=== PATIENT | female | born 1930 | race Caucasian/White ===

== ENCOUNTER → 2017-01-23 | Outpatient (CLI) | payer MEDICARE ==
[2015-04-07 12:50] VITALS: BP 154/71
[~2017-01-23] MED LIST: ASPI-630 PO; DIPH25CA58 PO; GABA-585 PO; GLIM4TAB PO; HYDR25TA9 PO; METF10002 PO; METO50TA4 PO; MONT10TA6 PO; SIMV20TA3 PO; TRAM50TA PO; VERA240C2 PO
--- NOTE | 2017-01-23 18:06 | RAD ---
Right toes, 3 views, 01/23/2017: History: Redness and swelling Views of the first through fourth toes were obtained. There is bony demineralization. There is a surgical wire related to the proximal phalanx of the great toe. There are moderate scattered degenerative changes, particularly at the first MTP level. There as probably been previous bunion type surgery at that level. There are fractures of the second toe. There is a fracture of the distal aspect of the proximal phalanx with mild displacement at that fracture site. The age of this fracture is unclear. The underlying PIP joint may have been chronically fused. There is a small nondisplaced fracture of the medial aspect of the distal end of the middle phalanx of the second toe. No definite bone destruction is seen. IMPRESSION: 1. Demineralization. 2. Moderate degenerative change. 3. Right second toe fractures as described above.
== END | disposition home or self-care (01) ==
LOC: LAB 15:00
PROVIDERS: ATTEND Family Medicine
DX: S92.511A Displaced fracture of proximal phalanx of right lesser toe(s), initial encounter for closed fracture (principal); M19.071 Primary osteoarthritis, right ankle and foot; X58.XXXA Exposure to other specified factors, initial encounter; Y93.89 Activity, other specified; Y92.89 Other specified places as the place of occurrence of the external cause; Y99.8 Other external cause status
CPT/HCPCS: 73660

== ENCOUNTER 2017-06-17 18:36 | Inpatient (IN) | payer MEDICARE ==
[~2017-06-17] VITALS: Ht 152.4 cm; Wt 77.2 kg
--- NOTE | 2017-06-17 19:16 | ED.ADGEN ---
Adult General Chief Complaint Chief Complaint " .. I ve had diarrhea for a week... I brought in some of my stool..." Dr. Wilks said I need to collect my stool.." HPI HPI Patient is a 87 year old female who presents with above hx and complaints of diarrhea, generalized weakness and fatigue. Pt. denies any bad food intake. No travel or specific ill contacts. Pt. reports multiple episodes of diarrhea. No hx of immunosuppression. Review of Systems Review of Systems Constitutional:Hx. of fever or chills [] Eyes: Denies change in visual acuity, redness, or eye pain [] HENT: Denies nasal congestion or sore throat [] Respiratory: Denies cough or shortness of breath [] Cardiovascular: No additional information not addressed in HPI [] GI: generalized abdominal pain, nausea, and diarrhea [] : Denies dysuria or hematuria [] Musculoskeletal: Denies back pain or joint pain [] Integument: Denies rash or skin lesions [] Neurologic: Denies headache, focal weakness or sensory changes [] Endocrine: Denies polyuria or polydipsia [] All other systems were reviewed and found to be within normal limits, except as documented in this note. Family History Family History Non-contributory Current Medications Current Medications Current Medications Medications (Trade) Dose Ordered Sig/Gilma Start Time Stop Time Status Last Admin Dose Admin Famotidine (Pepcid Vial) 20 mg 1X ONCE 06/17/17 19:30 06/17/17 19:43 DC Ondansetron HCl (Zofran) 8 mg 1X ONCE 06/17/17 19:30 06/17/17 19:43 DC Sodium Chloride 1,000 ml @ 1,000 mls/hr Q1H 06/17/17 19:29 06/17/17 20:28 DC 06/17/17 19:29 1,000 MLS/HR Allergies Allergies Allergies Coded Allergies Type Severity Reaction Last Updated Verified Penicillins Allergy Unknown 04/03/15 Yes Physical Exam Physical Exam Constitutional: mild distress, non-toxic appearance. [] HENT: Normocephalic, atraumatic, bilateral external ears normal, oropharynx dry , no oral exudates, nose normal. [] Eyes: PERRLA, EOMI, conjunctiva normal, no discharge. [] Neck: Normal range of motion, no tenderness, supple, no stridor. [] Cardiovascular:Heart rate regular rhythm, no murmur [] Lungs & Thorax: Bilateral breath sounds equal at apexes on auscultation [] Abdomen: Bowel sounds hyperactive, soft,obese, mild generalized tenderness, no masses, no pulsatile masses. Old surgery scar. Skin: Warm, dry, no erythema, no rash. [] Back: No tenderness, no CVA tenderness. [] Extremities: No tenderness, no cyanosis, no clubbing, ROM intact, no edema. [] Neurologic: Alert and oriented X 3, normal motor function, normal sensory function, no focal deficits noted. [] Psychologic: Affect anxious, judgement normal, mood normal. [] Current Patient Data Vital Signs Vital Signs Date Time Temp Pulse Resp B/P (MAP) Pulse Ox O2 Delivery O2 Flow Rate FiO2 06/17/17 19:17 98.6 68 20 98 Room Air Lab Results Laboratory Tests Test 06/17/17 20:00 White Blood Count 28.4 x10^3/uL (4.0-11.0) H Red Blood Count 4.41 x10^6/uL (3.50-5.40) Hemoglobin 13.3 g/dL (12.0-15.5) Hematocrit 39.2 % (36.0-47.0) Mean Corpuscular Volume 89 fL (79-100) Mean Corpuscular Hemoglobin 30 pg (25-35) Mean Corpuscular Hemoglobin Concent 34 g/dL (31-37) Red Cell Distribution Width 12.6 % (11.5-14.5) Platelet Count 427 x10^3/uL (140-400) H Neutrophils (%) (Auto) 91 % (31-73) H Lymphocytes (%) (Auto) 5 % (24-48) L Monocytes (%) (Auto) 4 % (0-9) Eosinophils (%) (Auto) 0 % (0-3) Basophils (%) (Auto) 0 % (0-3) Neutrophils # (Auto) 25.7 x10^3uL (1.8-7.7) H Lymphocytes # (Auto) 1.3 x10^3/uL (1.0-4.8) Monocytes # (Auto) 1.2 x10^3/uL (0.0-1.1) H Eosinophils # (Auto) 0.0 x10^3/uL (0.0-0.7) Basophils # (Auto) 0.1 x10^3/uL (0.0-0.2) Segmented Neutrophils % 85 % (35-66) H Band Neutrophils % 4 % (0-9) Lymphocytes % 8 % (24-48) L Monocytes % 3 % (0-10) Platelet Estimate Increased (ADEQUATE) Prothrombin Time 10.9 SEC (9.4-11.4) Prothrombin Time INR 1.1 (0.9-1.1) PTT 24 SEC (23-33) Sodium Level 133 mmol/L (136-145) L Potassium Level 2.7 mmol/L (3.5-5.1) *L Chloride Level 93 mmol/L (98-107) L Carbon Dioxide Level 26 mmol/L (21-32) Anion Gap 14 (6-14) Blood Urea Nitrogen 47 mg/dL (7-20) H Creatinine 2.1 mg/dL (0.6-1.0) H Estimated GFR (Cockcroft-Gault) 22.3 Glucose Level 77 mg/dL (70-99) Calcium Level 7.9 mg/dL (8.5-10.1) L Total Bilirubin 0.3 mg/dL (0.2-1.0) Direct Bilirubin 0.1 mg/dL (0.0-0.2) Aspartate Amino Transferase (AST) 21 U/L (15-37) Alanine Aminotransferase (ALT) 17 U/L (14-59) Alkaline Phosphatase 117 U/L (46-116) H Troponin I Quantitative < 0.017 ng/mL (0-0.055) Total Protein 5.9 g/dL (6.4-8.2) L Albumin 2.2 g/dL (3.4-5.0) L Amylase Level 24 U/L (25-115) L Lipase 55 U/L (73-393) L EKG EKG My interpretation of EKG shows sinus 68, Lt axis[] Radiology/Procedures Radiology/Procedures My interpretation of clips prior surgery, no free air under diaphragm, chronic pul. changes. Course & Med Decision Making Course & Med Decision Making Pertinent Labs and Imaging studies reviewed. (See chart for details). Discussed presentation, testing and tx. plan with Dr. Bell.- Admit for further eval and tx. [] Final Impression Final Impression 1. Gastroenteritis[] 2. Hyponatremia 3. Critical Hypokalemia 4. Dehydration 5. Elevated BUN /Creat 6. Leukocytosis 7. Elevated Alk. Phos 8. Malnutrition-- Alb = 2.2 9. Suspect C-dif Problems: Dragon Disclaimer Dragon Disclaimer This electronic medical record was generated, in whole or in part, using a voice recognition dictation system. ESTHER ARCE MD Jun 17, 2017 19:16
[2017-06-17] MEDS ORDERED: IV NORMAL SALINE 1,000ML 1,000 ML IV SCH (19:29)
[2017-06-17] MEDS ORDERED: ONDANSETRON PF 4 MG/2 ML VIAL. IV ONE (19:30)
[2017-06-17] MEDS ORDERED: FAMOTIDINE 20 MG/2 ML VIAL IVP ONE (19:30)
[2017-06-17 20:48] LABS: BASO # 0.1 x10^3/uL (0.0-0.2); BASO % 0 % (0-3); EOS % 0 % (0-3); HEMATOCRIT 39.2 % (36.0-47.0); HEMOGLOBIN 13.3 g/dL (12.0-15.5); LYMPH # 1.3 x10^3/uL (1.0-4.8); LYMPH % 5 % (24-48); MEAN CORPUSCULAR HEMOGLOBIN 30 pg (25-35); MEAN CORPUSCULAR HGB CONC 34 g/dL (31-37); MEAN CORPUSCULAR VOLUME 89 fL (79-100); MONO # 1.2 x10^3/uL (0.0-1.1); MONO % 4 % (0-9); NEUT # 25.7 x10^3uL (1.8-7.7); NEUT % 91 % (31-73); PLATELET COUNT 427 x10^3/uL (140-400); RED BLOOD COUNT 4.41 x10^6/uL (3.50-5.40); RED CELL DISTRIBUTION WIDTH 12.6 % (11.5-14.5); WHITE BLOOD COUNT 28.4 x10^3/uL (4.0-11.0)
[2017-06-17 20:54] LABS: ALBUMIN 2.2 g/dL (3.4-5.0); CALCIUM 7.9 mg/dL (8.5-10.1); CREATININE 2.1 mg/dL (0.6-1.0); DIRECT BILIRUBIN 0.1 mg/dL (0.0-0.2); GFR 22.3; TOTAL BILIRUBIN 0.3 mg/dL (0.2-1.0); TOTAL PROTEIN 5.9 g/dL (6.4-8.2)
[2017-06-17 20:59] LABS: POTASSIUM 2.7 mmol/L (3.5-5.1)
--- NOTE | 2017-06-17 21:01 | EKG ---
[address] [address] Test Date: 2017-06-17 Test Time: 20:27:23 Pat Name: REX PFEIFFER Department: Room: Gender: F Kiln Hand: PANKAJ : 1930 Requested By: ESTHER ARCE Order Number: [id number] Reading MD: Measurements Intervals [place] Rate: 68 P: 90 MI: 200 QRS: -2 QRSD: 80 T: 100 QT: 474 QTc: 510 Interpretive Statements SINUS RHYTHM LEFTWARD AXIS LOW LIMB LEAD VOLTAGE T ABNORMALITY IN ANTERIOR LEADS PROLONGED QT ABNORMAL ECG RI6.01 Unconfirmed report No previous ECG available for comparison
[2017-06-17] MEDS ORDERED: metroNIDAZOLE 500 MG TABLET PO ONE (21:15)
[2017-06-17] MEDS ORDERED: POTASSIUM CHLORIDE 20 MEQ/15 ML ORAL LIQUID. PO ONE (21:15)
[2017-06-17] MEDS ORDERED: VANCOMYCIN 1 GM VIAL. ONE (21:59)
[2017-06-17] MEDS ORDERED: IV NORMAL SALINE 250ML 250 ML ONE (21:59)
[2017-06-17] MEDS ORDERED: VANCOMYCIN 1 GM in IV NORMAL SALINE 250ML 250 ML IV ONE (22:00)
[2017-06-17 22:52] VITALS: BP 116/54
[2017-06-17 22:56] LABS: % BANDS 4 % (0-9); % LYMPHS 8 % (24-48); % MONOS 3 % (0-10); % SEGS 85 % (35-66); PLT ESTIMATE INCREASED (ADEQUATE)
[2017-06-17] MEDS ORDERED: POTASSIUM CL 20MEQ D5-0.45NACL 1,000 ML IV SCH (23:30)
[2017-06-17] MEDS ORDERED: ONDA8TAB15 PO (23:39)
[2017-06-17] MEDS ORDERED: FURO40TA4 PO (23:41)
[2017-06-17] MEDS ORDERED: PRAM0.25 PO (23:43)
[2017-06-17] MEDS ORDERED: ALEN70TA5 PO (23:46)
[2017-06-17] MEDS ORDERED: GABA300C8 PO (23:50)
[2017-06-17] MEDS ORDERED: ALBU8.5H8 INH (23:52)
[2017-06-17] MEDS ORDERED: INSU100I27 SQ (23:59)
[2017-06-18] VITALS (21 sets, daily range): BP systolic 98–160; BP diastolic 46–68
[2017-06-18] MEDS ORDERED: DIPH1TAB PO (00:03)
[2017-06-18] MEDS ORDERED: ONDANSETRON ODT 4 MG TAB.RAPDIS PO PRN (00:15)
[2017-06-18] MEDS ORDERED: IV RINGERS SOLUTION,LACTATED 1,000 ML IV SCH (00:15)
[2017-06-18] MEDS: HEPARIN PF for SUB-Q USE 5,000 UNIT/0.5 ML VIAL. SQ SCH ×3 (00:50→23:50)
[2017-06-18] MEDS ORDERED: metroNIDAZOLE 500 MG TABLET PO SCH (06:00)
[2017-06-18] MEDS: VANCOMYCIN PER PHARMACY MC PRN ×2 (06:48→06:50)
[2017-06-18 07:28] LABS: BASO % 0 % (0-3); EOS # 0.1 x10^3/uL (0.0-0.7); EOS % 1 % (0-3); HEMOGLOBIN 12.2 g/dL (12.0-15.5); LYMPH # 1.3 x10^3/uL (1.0-4.8); LYMPH % 5 % (24-48); MEAN CORPUSCULAR HEMOGLOBIN 31 pg (25-35); MEAN CORPUSCULAR HGB CONC 34 g/dL (31-37); MEAN CORPUSCULAR VOLUME 90 fL (79-100); MONO # 1.5 x10^3/uL (0.0-1.1); MONO % 6 % (0-9); NEUT # 22.8 x10^3uL (1.8-7.7); NEUT % 88 % (31-73); PLATELET COUNT 413 x10^3/uL (140-400); WHITE BLOOD COUNT 25.8 x10^3/uL (4.0-11.0)
[2017-06-18 07:52] LABS: ALBUMIN/GLOBULIN RATIO 0.6 (1.0-1.7); CALCIUM 7.4 mg/dL (8.5-10.1); CREATININE 1.8 mg/dL (0.6-1.0); GFR 26.7; POTASSIUM 3.5 mmol/L (3.5-5.1); TOTAL BILIRUBIN 0.4 mg/dL (0.2-1.0); TOTAL PROTEIN 5.3 g/dL (6.4-8.2)
--- NOTE | 2017-06-18 08:27 | RAD ---
Single view chest and upright and supine AP views abdomen 06/17/2017 Clinical indication: Abdominal pain and diarrhea. Comparison: None. Findings: Cardiac and mediastinal silhouettes are unremarkable. No pleural effusion, pneumothorax or focal consolidation. There is a nonobstructive bowel gas pattern. Right upper quadrant cholecystectomy clips. No evidence of pneumoperitoneum there is multilevel lumbar spondylosis greatest at L4-L5 and L5-S1. Impression: 1. No acute cardiopulmonary abnormality. 2. No radiographic evidence of bowel obstruction.
[2017-06-18] MEDS ORDERED: POTASSIUM CHLORIDE 20 MEQ/15 ML ORAL LIQUID. PO ONE (09:00)
[2017-06-18] MEDS: FAMOTIDINE 20 MG TABLET PO SCH (09:37)
[2017-06-18] MEDS: VANCOMYCIN 250 MG/5 ML ORAL SOLUTION. PO SCH ×4 (09:38→20:18)
--- NOTE | 2017-06-18 10:55 | PDOC1 ---
History of Present Illness Reason for Visit: DIarrhea History of Present Illness Pt presented to ER w/ about 2 week history of severe diarrhea. She denies blood in the stool. Denies fever. Says she did have vomiting about 2 weeks ago , but none since. Says she "feels like I'm ." Have frequent BM's, about 15 per day. Denies abd pain. Denies CP or SOA. No dysuria or hematuria. No polyuria. Pt reports she had a colonoscopy a couple years ago that was normal. She says the last time she was in a hospital was an outpatient visit in March for a heart cath, which she says was negative for blockages. She denies having been on abx recently. Denies close ill contacts. Denies recent travel. SHe says she has "always alternated between constipation and diarrhea." Her only abdominal surgery was a partial hysterectomy. She has a hx of DM, HTN, CAD, recurrent diarrhea. Follows with Dr. Salcedo in [place]. Sees Dr. Combs for cardiology. She says she is feeling "a little better" today, but still having diarrhea. Chief Complaint: DIARRHEA Allergies: Coded Allergies: Penicillins (Verified Allergy, Unknown, 04/03/15) Past Medical History Cardiac: CAD, HTN, hyperipidemia GI: Constipation, Other (Recurrent diarrhea) Renal/: Chronic renal insuff (Baseline creat in 07.05) Endocrine: Diabetes Past Surgical History: Cholecystectomy, Hysterectomy, Other (Bilateral shoulder surgery, bilateral knee surgery, right ankle surgery) Family History: Other (Negative for IBD) Past Social History Smoke: No Alcohol: none Drugs: None Lives: with Family Review of Systems Review Of Systems Fourteen system , review of systems has been reviewed. See HPI for pertinent positives and negative responses, other guerrero all other systems are negative, non pertinent or non contributory Constitutional: No: Fever, Chills, Sweats Eyes: No: Blurry vision, Double vision ENT: No: Ear pain, Nose pain, Mouth pain Respiratory: No: Cough, Hemoptysis, Shortness of breath Cardiovascular: yes: Edema (chronic), No: Chest Pain, Palpitations Gastrointestinal: YES: Nausea, Diarrhea, No: Vomiting, Abdominal Pain, Constipation, Melena, Hematochezia Genitourinary: No: Dysuria, Flank Pain, Henaturia Musculoskeletal: No: Muscle Pain, Muscular Weakness SKIN: YES: Warm, Dry, No Rashes Neurological: No: Confusion, Dizziness, Memory Loss, Numbness/Tingling, Speech Problems, Tremors Allergies: Coded Allergies: Penicillins (Verified Allergy, Unknown, 04/03/15) Medications Current Medications Sodium Chloride 1,000 ml @ 1,000 mls/hr Q1H IV Last administered on 19:29; Start 06/17/17 at 19:29; Stop 06/17/17 at 20:28; Status DC Ondansetron HCl (Zofran) 8 mg 1X ONCE IV ; Start 06/17/17 at 19:30; Stop at 19:43; Status DC Famotidine (Pepcid Vial) 20 mg 1X ONCE IVP ; Start 06/17/17 at 19:30; Stop at 19:43; Status DC Potassium Chloride (KCl Oral Soln) 40 meq 1X ONCE PO Last administered on 21:41; Start 06/17/17 at 21:15; Stop 06/17/17 at 22:04; Status DC Metronidazole (Flagyl) 500 mg 1X ONCE PO Last administered on 06/17/17 21:41 ; Start 06/17/17 at 21:15; Stop 06/17/17 at 22:04; Status DC Vancomycin HCl 1 gm/Sodium Chloride 250 ml @ 250 mls/hr 1X ONCE IV Last administered on 06/17/17 22:00; Start 06/17/17 at 22:00; Stop 06/17/17 at 22 :59; Status DC Sodium Chloride 250 ml @ As Directed STK-MED ONCE .ROUTE ; Start 06/17/17 at 21:59; Stop 06/17/17 at 22:00; Status DC Vancomycin HCl 1 gm STK-MED ONCE .ROUTE ; Start 06/17/17 at 21:59; Stop at 22:00; Status DC Potassium Chloride/Dextrose/ Sod Cl 1,000 ml @ 100 mls/hr Q10H IV Last administered on 06/18/17 00:35; Start 06/17/17 at 23:30 Famotidine (Pepcid) 20 mg DAILY PO Last administered on 06/18/17 09:37; Start 06/18/17 at 09:00 Heparin Sodium (Porcine) 5,000 unit Q12H SQ Last administered on 06/18/17 00: 50; Start 06/17/17 at 23:30 Vancomycin HCl 250 mg [id number] PO Last administered on 06/18/17 09:38; Start 06/18/17 at 09:00 Lactated Ringer's 1,000 ml @ 160 mls/hr Q6H15M IV ; Start 06/18/17 at 00:15; Stop 06/18/17 at 00:42; Status DC Potassium Chloride (KCl Oral Soln) 40 meq 1X ONCE PO Last administered on 09:38; Start 06/18/17 at 09:00; Stop 06/18/17 at 09:01; Status DC Vancomycin HCl (Vanco Per Pharmacy) 1 each PRN DAILY PRN MC SEE COMMENTS Last administered on 06/18/17 06:50; Start 06/18/17 at 00:15 Metronidazole (Flagyl) 500 mg Q8HRS PO Last administered on 06/18/17 05:51; Start 06/18/17 at 06:00 Ondansetron HCl (Zofran Odt) 8 mg PRN Q8HRS PRN PO NAUSEA/VOMITING; Start at 00:15 Vancomycin HCl 1 each 1X ONCE MC ; Start 06/19/17 at 09:00; Stop 06/19/17 at 09:01 Active Scripts Active Reported Lomotil Tablet (Diphenoxylate Hcl/Atropine) 1 Each Tablet 5 Mg PO PRN PRN MDD 12.5mg Levemir Flextouch (Insulin Detemir) 100 Unit/1 Ml Insuln.pen 45 Units SQ HS Proair Hfa Inhaler (Albuterol Sulfate) 8.5 Gm Hfa.aer.ad 8.5 Gm INH DAILY Gabapentin 300 Mg Capsule 600 Mg PO DAILY Alendronate Sodium 70 Mg Tablet 70 Mg PO WEEKLY Pramipexole Dihydrochloride (Pramipexole Di-Hcl) 0.25 Mg Tablet 0.5 Mg PO HS Furosemide 40 Mg Tablet 40 Mg PO DAILY Ondansetron Odt (Ondansetron) 8 Mg Tab.rapdis 8 Mg PO PRN Q6HRS PRN Simvastatin 20 Mg Tablet 20 Mg PO QHS Aspirin 81 Mg Tab.chew 91 Mg PO DAILY Tramadol Hcl (Tramadol HCl) 50 Mg Tablet 1 Tab PO BID Singulair Tablet (Montelukast Sodium) 10 Mg Tablet 10 Mg PO HS Toprol Xl (Metoprolol Succinate) 50 Mg Tab.er.24h 50 Mg PO BID Amaryl (Glimepiride) 4 Mg Tablet 4 Mg PO BID Verapamil Er (Verapamil Hcl) 240 Mg Cap24h.pel 240 Mg PO DAILY Exam Vital Signs Vital Signs Date Time Temp Pulse Resp B/P (MAP) Pulse Ox O2 Delivery O2 Flow Rate FiO2 06/18/17 10:30 81 16 143/52 (82) 06/18/17 09:00 96 06/18/17 07:10 98.8 Room Air General Appearance: Alert, Oriented X3, Cooperative, No acute distress HEENT: Atraumatic, PERRLA, EOMI, Mucous membr. moist/pink, Other (Neck supple, no JVD< no LAD, no thyromegaly) Respiratory: Clear to auscultation, Normal air movement Heart: Regular rate, Normal S1, Normal S2, No murmurs Abdominal: Normal bowel sounds, Soft, No hepatospenomegaly, No masses, Other ( Mild diffuse TTP, mildly distended, but soft) Extremities: Normal pulses, Other (1+ BLE edema) Skin: No rashes, No breakdown Neuro: Normal speech, Strength at 5/5 X4 ext, Normal tone, Sensation intact, Cranial nerves 3-12 NL, Reflexes 2+ Psych/Mental Status: Mental status NL, Mood NL Assessment/Plan Assessment/Plan 1. Sepsis (meets criteria) due to GI illness (possibly C DIf): Repeat lactate pending. BP and HR stable. Continue IVF and PO Vanc for presumed C dif. Urine and blood cultures pending. Pt's risk factors for C dif are, unfortunately, lacking. I am going to get a CT of her abdomen/pelvis (without contrast due to ARF), to see if any other inflammatory process present in the abdomen. If pt still has her ovaries, ovarian cancer could be a consideration as well. I will also check other stool studies. 2. Acute on chronic renal failure: Initial creat 2.1, now down to 1.9. Baseline 1.3 in March. Continue IVF to replace GI losses. Pt taking PO ok , encourage fluid intake. 3. DM: Hold PO DM meds, give SSI w/ accuchecks ACHS. 4. HTN: Monitor BP closely, hold BP meds if getting too low. BP stable at this time 5. CAD: Cath report from Mar reviewed. Showed blockages that were not hemodynamically significant, and medical management was recommended. Pt is not having chest pain. Continue home meds. 6. DVT proph: Heparin. 7. SEvere PEM: Add nutritional supplements. 8. Severe leukocytosis: WBC was 13K in Mar. There is no other sign of a blood cell disorder, but that may have to be considered at some point. WBC down this morning. Pt is not on steroids. 9. DIsp: Pt being treated for sepsis. Given her age and comorbid conditions, recommend ICU status for now. COURSE Allergies Coded Allergies Type Severity Reaction Last Updated Verified Penicillins Allergy Unknown 04/03/15 Yes Laboratory Tests Test 06/17/17 20:00 06/18/17 06:17 06/18/17 06:33 White Blood Count 28.4 x10^3/uL (4.0-11.0) 25.8 x10^3/uL (4.0-11.0) Red Blood Count 4.41 x10^6/uL (3.50-5.40) 4.00 x10^6/uL (3.50-5.40) Hemoglobin 13.3 g/dL (12.0-15.5) 12.2 g/dL (12.0-15.5) Hematocrit 39.2 % (36.0-47.0) 36.0 % (36.0-47.0) Mean Corpuscular Volume 89 fL (79-100) 90 fL (79-100) Mean Corpuscular Hemoglobin 30 pg (25-35) 31 pg (25-35) Mean Corpuscular Hemoglobin Concent 34 g/dL (31-37) 34 g/dL (31-37) Red Cell Distribution Width 12.6 % (11.5-14.5) 13.0 % (11.5-14.5) Platelet Count 427 x10^3/uL (140-400) 413 x10^3/uL (140-400) Neutrophils (%) (Auto) 91 % (31-73) 88 % (31-73) Lymphocytes (%) (Auto) 5 % (24-48) 5 % (24-48) Monocytes (%) (Auto) 4 % (0-9) 6 % (0-9) Eosinophils (%) (Auto) 0 % (0-3) 1 % (0-3) Basophils (%) (Auto) 0 % (0-3) 0 % (0-3) Neutrophils # (Auto) 25.7 x10^3uL (1.8-7.7) 22.8 x10^3uL (1.8-7.7) Lymphocytes # (Auto) 1.3 x10^3/uL (1.0-4.8) 1.3 x10^3/uL (1.0-4.8) Monocytes # (Auto) 1.2 x10^3/uL (0.0-1.1) 1.5 x10^3/uL (0.0-1.1) Eosinophils # (Auto) 0.0 x10^3/uL (0.0-0.7) 0.1 x10^3/uL (0.0-0.7) Basophils # (Auto) 0.1 x10^3/uL (0.0-0.2) 0.0 x10^3/uL (0.0-0.2) Segmented Neutrophils % 85 % (35-66) Band Neutrophils % 4 % (0-9) Lymphocytes % 8 % (24-48) Monocytes % 3 % (0-10) Platelet Estimate Increased (ADEQUATE) Reticulocyte Count (auto) 2.0 % (0.5-2.5) Prothrombin Time 10.9 SEC (9.4-11.4) Prothromb Time International Ratio 1.1 (0.9-1.1) Activated Partial Thromboplast Time 24 SEC (23-33) Sodium Level 133 mmol/L (136-145) 133 mmol/L (136-145) Potassium Level 2.7 mmol/L (3.5-5.1) 3.5 mmol/L (3.5-5.1) Chloride Level 93 mmol/L (98-107) 97 mmol/L (98-107) Carbon Dioxide Level 26 mmol/L (21-32) 24 mmol/L (21-32) Anion Gap 14 (6-14) 12 (6-14) Blood Urea Nitrogen 47 mg/dL (7-20) 39 mg/dL (7-20) Creatinine 2.1 mg/dL (0.6-1.0) 1.8 mg/dL (0.6-1.0) Estimated GFR (Cockcroft-Gault) 22.3 26.7 Glucose Level 77 mg/dL (70-99) 170 mg/dL (70-99) Calcium Level 7.9 mg/dL (8.5-10.1) 7.4 mg/dL (8.5-10.1) Total Bilirubin 0.3 mg/dL (0.2-1.0) 0.4 mg/dL (0.2-1.0) Direct Bilirubin 0.1 mg/dL (0.0-0.2) Aspartate Amino Transf (AST/SGOT) 21 U/L (15-37) 16 U/L (15-37) Alanine Aminotransferase (ALT/SGPT) 17 U/L (14-59) 15 U/L (14-59) Alkaline Phosphatase 117 U/L (46-116) 110 U/L (46-116) Troponin I Quantitative < 0.017 ng/mL (0-0.055) Total Protein 5.9 g/dL (6.4-8.2) 5.3 g/dL (6.4-8.2) Albumin 2.2 g/dL (3.4-5.0) 2.0 g/dL (3.4-5.0) Amylase Level 24 U/L (25-115) Lipase 55 U/L (73-393) Glucose (Fingerstick) 166 mg/dL (70-99) BUN/Creatinine Ratio 22 (6-20) Lactic Acid Level 2.5 mmol/L (0.4-2.0) Albumin/Globulin Ratio 0.6 (1.0-1.7) Current Medications Medications (Trade) Dose Ordered Sig/Gilma Route PRN Reason Start Time Stop Time Status Last Admin Dose Admin Sodium Chloride 1,000 ml @ 1,000 mls/hr Q1H IV 06/17/17 19:29 06/17/17 20:28 DC 06/17/17 19:29 Ondansetron HCl (Zofran) 8 mg 1X ONCE IV 06/17/17 19:30 06/17/17 19:43 DC Famotidine (Pepcid Vial) 20 mg 1X ONCE IVP 06/17/17 19:30 06/17/17 19:43 DC Potassium Chloride (KCl Oral Soln) 40 meq 1X ONCE PO 06/17/17 21:15 06/17/17 22:04 DC 06/17/17 21:41 Metronidazole (Flagyl) 500 mg 1X ONCE PO 06/17/17 21:15 06/17/17 22:04 DC 06/17/17 21:41 Vancomycin HCl 1 gm/Sodium Chloride 250 ml @ 250 mls/hr 1X ONCE IV 06/17/17 22:00 06/17/17 22:59 DC 06/17/17 22:00 Sodium Chloride 250 ml @ As Directed STK-MED ONCE .ROUTE 06/17/17 21:59 06/17/17 22:00 DC Vancomycin HCl 1 gm STK-MED ONCE .ROUTE 06/17/17 21:59 06/17/17 22:00 DC Potassium Chloride/Dextrose/ Sod Cl 1,000 ml @ 100 mls/hr Q10H IV 06/17/17 23:30 06/18/17 00:35 Famotidine (Pepcid) 20 mg DAILY PO 06/18/17 09:00 06/18/17 09:37 Heparin Sodium (Porcine) 5,000 unit Q12H SQ 06/17/17 23:30 06/18/17 00:50 Vancomycin HCl 250 mg [id number] PO 06/18/17 09:00 06/18/17 09:38 Lactated Ringer's 1,000 ml @ 160 mls/hr Q6H15M IV 06/18/17 00:15 06/18/17 00:42 DC Potassium Chloride (KCl Oral Soln) 40 meq 1X ONCE PO 06/18/17 09:00 06/18/17 09:01 DC 06/18/17 09:38 Vancomycin HCl (Vanco Per Pharmacy) 1 each PRN DAILY PRN SEE COMMENTS 06/18/17 00:15 06/18/17 06:50 Metronidazole (Flagyl) 500 mg Q8HRS PO 06/18/17 06:00 06/18/17 05:51 Ondansetron HCl (Zofran Odt) 8 mg PRN Q8HRS PRN PO NAUSEA/VOMITING 06/18/17 00:15 Vancomycin HCl 1 each 1X ONCE 06/19/17 09:00 06/19/17 09:01 I & O 06/18/17 00:00 Intake Total 0 ml Balance 0 ml O Vital Signs Date Time Temp Pulse Resp B/P (MAP) Pulse Ox O2 Delivery O2 Flow Rate FiO2 06/18/17 10:30 81 16 143/52 (82) 06/18/17 09:00 96 06/18/17 07:10 98.8 Room Air Single view chest and upright and supine AP views abdomen 06/17/2017 Clinical indication: Abdominal pain and diarrhea. Comparison: None. Findings: Cardiac and mediastinal silhouettes are unremarkable. No pleural effusion, pneumothorax or focal consolidation. There is a nonobstructive bowel gas pattern. Right upper quadrant cholecystectomy clips. No evidence of pneumoperitoneum there is multilevel lumbar spondylosis greatest at L4-L5 and L5-S1. Impression: 1. No acute cardiopulmonary abnormality. 2. No radiographic evidence of bowel obstruction. EARNEST SYLVESTER MD Jun 18, 2017 10:55
[2017-06-18] MEDS ORDERED: ALBUTEROL SULFATE 8GM INHALER. INH PRN (11:30)
[2017-06-18] MEDS ORDERED: DEXTROSE 50% 25 GM / 50ML DISP.SYRIN. IV PRN (11:30)
[2017-06-18] MEDS: INSULIN ASPART 300 UNITS/3 ML INSULN.PEN SQ SCH ×2 (11:30→16:30)
[2017-06-18] MEDS ORDERED: ALBUTEROL SULFATE 2.5 MG/3 ML NEBU. NEB PRN (11:45)
--- NOTE | 2017-06-18 12:54 | RAD ---
CT abdomen and pelvis without contrast 06/18/2017 Clinical indication: Abdominal pain, diarrhea and bloating. Comparison: None. Technique: Multiple CT images of the abdomen and pelvis were obtained without contrast according to standard protocol. PQRS Compliance Statement: One or more of the following individualized dose reduction techniques were utilized for this examination: 1. Automated exposure control 2. Adjustment of the mA and/or kV according to patient size 3. Use of iterative reconstruction technique Findings: Heart size is normal with coronary artery calcifications. Visualized lung bases are clear. Evaluation of the solid abdominal pelvic viscera, lymphadenopathy and vasculature is limited in the absence of intravenous contrast. There is suggestion of a micronodular contour to the surface of the liver with fissural widening. Prior cholecystectomy. Unenhanced contours of the spleen and kidneys are grossly unremarkable. No hydronephrosis or nephrolithiasis. There is low-attenuation thickening of both adrenal glands. Moderate fatty atrophy of the pancreas. Prior cholecystectomy. Abdominal aorta is normal in caliber with mild calcified atheromatous disease. 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 There is diffuse circumferential mural thickening with pericolonic stranding throughout the large bowel from the cecum to the rectum. There is mild abdominal ascites. No pneumoperitoneum or pneumatosis. Moderately distended and unopacified urinary bladder is unremarkable. Prior hysterectomy with the vaginal cuff unremarkable. There is multilevel lumbar spondylosis with no destructive osseous lesions. Impression: 1. Diffuse colonic mural thickening with pericolonic stranding. Findings are compatible with nonspecific colitis likely from infectious or inflammatory etiologies. C. Difficile is a consideration. Ischemia is an additional less likely consideration. 2. Mild ascites. 3. There is suggestion of nodular contour to the surface of the liver which may be due to chronic liver disease (cirrhosis). Clinical correlation is recommended. 4. Bilateral low-attenuation thickening of the adrenal glands may be related to hyperplasia or benign adenomatous change.
[2017-06-18] MEDS ORDERED: INSULIN ASPART 300 UNITS/3 ML INSULN.PEN SQ ONE ×3 (13:00→17:05)
[2017-06-18] MEDS: POTASSIUM CL 20MEQ IN 0.9%NACL 1,000 ML IV SCH (13:26)
[2017-06-18 18:53] LABS: FECAL OB PT NEGATIVE (NEG)
[2017-06-18] MEDS: PRAMIPEXOLE 0.5 MG TABLET. PO SCH (20:18)
[2017-06-18] MEDS: MONTELUKAST 10 MG TABLET. PO SCH (20:19)
[2017-06-18] MEDS: traMADol 50 MG TABLET PO SCH (20:20)
[2017-06-18] MEDS: METOPROLOL SUCC 24HR ER 50 MG TAB.ER.24H. PO SCH (20:21)
[2017-06-18] MEDS: SIMVASTATIN 20 MG TABLET PO SCH (20:22)
[2017-06-18] MEDS: INSULIN DETEMIR 300 UNITS/3 ML INSULN.PEN. SQ SCH (21:09)
[2017-06-19] VITALS (22 sets, daily range): BP systolic 93–145; BP diastolic 48–82
[2017-06-19] MEDS: POTASSIUM CL 20MEQ IN 0.9%NACL 1,000 ML IV SCH ×3 (01:27→11:30)
[2017-06-19 05:51] LABS: BASO # 0.1 x10^3/uL (0.0-0.2); BASO % 0 % (0-3); EOS # 0.2 x10^3/uL (0.0-0.7); EOS % 1 % (0-3); HEMATOCRIT 36.6 % (36.0-47.0); LYMPH # 1.4 x10^3/uL (1.0-4.8); LYMPH % 7 % (24-48); MEAN CORPUSCULAR HEMOGLOBIN 31 pg (25-35); MEAN CORPUSCULAR HGB CONC 33 g/dL (31-37); MEAN CORPUSCULAR VOLUME 93 fL (79-100); MONO # 1.3 x10^3/uL (0.0-1.1); MONO % 6 % (0-9); NEUT # 18.2 x10^3uL (1.8-7.7); NEUT % 86 % (31-73); PLATELET COUNT 402 x10^3/uL (140-400); RED BLOOD COUNT 3.92 x10^6/uL (3.50-5.40); RED CELL DISTRIBUTION WIDTH 12.9 % (11.5-14.5); WHITE BLOOD COUNT 21.2 x10^3/uL (4.0-11.0)
[2017-06-19 05:55] LABS: ALBUMIN/GLOBULIN RATIO 0.6 (1.0-1.7); CALCIUM 7.5 mg/dL (8.5-10.1); CREATININE 1.2 mg/dL (0.6-1.0); GFR 42.6; POTASSIUM 4.2 mmol/L (3.5-5.1); TOTAL BILIRUBIN 0.2 mg/dL (0.2-1.0); TOTAL PROTEIN 5.4 g/dL (6.4-8.2)
[2017-06-19] MEDS: INSULIN ASPART 300 UNITS/3 ML INSULN.PEN SQ SCH ×3 (08:19→16:53)
[2017-06-19] MEDS: VANCOMYCIN 250 MG/5 ML ORAL SOLUTION. PO SCH ×4 (08:49→21:19)
[2017-06-19] MEDS: ASPIRIN 81 MG TAB.CHEW PO SCH (08:50)
[2017-06-19] MEDS: VERAPAMIL 240 MG PO SCH (08:50)
[2017-06-19] MEDS: GABAPENTIN 300 MG CAPSULE. PO SCH (08:51)
[2017-06-19] MEDS: FAMOTIDINE 20 MG TABLET PO SCH (08:51)
[2017-06-19] MEDS: METOPROLOL SUCC 24HR ER 50 MG TAB.ER.24H. PO SCH ×2 (08:52→21:20)
[2017-06-19] MEDS: traMADol 50 MG TABLET PO SCH ×2 (08:53→21:21)
[2017-06-19] MEDS ORDERED: VANCOMYCIN RANDOM LEVEL. MC ONE (09:00)
[2017-06-19] MEDS: HEPARIN PF for SUB-Q USE 5,000 UNIT/0.5 ML VIAL. SQ SCH ×2 (13:01→23:06)
[2017-06-19] MEDS: MONTELUKAST 10 MG TABLET. PO SCH (21:19)
[2017-06-19] MEDS: SIMVASTATIN 20 MG TABLET PO SCH (21:21)
[2017-06-19] MEDS: INSULIN DETEMIR 300 UNITS/3 ML INSULN.PEN. SQ SCH (21:22)
[2017-06-19] MEDS: PRAMIPEXOLE 0.5 MG TABLET. PO SCH (21:38)
--- NOTE | 2017-06-19 23:42 | PN ---
DATE: 06/19/2017 SUBJECTIVE: The patient is resting, slightly propped up in bed, in no apparent distress. She continued to have recurrent bouts of loose bowel movement; however, she denied any nausea, vomiting, denied any abdominal pain, denied any chills, rigors or fever. PHYSICAL EXAMINATION: GENERAL: When I examined her, she was pale, but no jaundice, cyanosis, or thyromegaly. No jugular venous distention. No limb edema. VITAL SIGNS: Her heart rate was 75, blood pressure was 143/78, temperature was 98, respiratory rate was 17, and oxygen saturation was 100%. HEAD, EYES, EARS, NOSE AND THROAT: Normocephalic, atraumatic. NECK: Supple. HEART: Showed normal first and second heart sounds with no gallop, rub, or murmur. CHEST: Clear to auscultation. No crepitation or rhonchi. ABDOMEN: Her abdomen was markedly distended, nontender. No guarding or rigidity. No organomegaly. Hernial orifice is intact. Bowel sounds normal. NEUROLOGIC: She is awake, alert, responding appropriately. Cranial nerves are intact. She moves extremities without difficulty. Her intake over the last 24 hours was 1170, output was 304. LABORATORY DATA: As of this morning showed a white cell count is trending down to 21,200, hemoglobin 12, hematocrit 36, MCV 93, and platelet count of 92,000 with normal manual differential. Her chemistry showed a serum sodium 134, potassium 4.2, chloride 103, bicarbonate 20, anion gap of 11, BUN 25, creatinine 1.2, estimated GFR was 42 mL per minute. Her glucose was 294, calcium was 7.5. Total bilirubin, AST, ALT, alkaline phosphatase were normal. Total protein was 5.4, albumin 2. Her nasal screen for MRSA PCR was negative. Stool for occult blood was negative; however, stool for C. diff toxins were positive. ASSESSMENT: 1. Sepsis with marked leukocytosis. The patient was found to be Clostridium difficile toxin positive for which she is now on p.o. vancomycin. 2. Kcpvx-em-tkdmzjx kidney injury, improving. Her serum creatinine is trending down from 2.1-1.2. 3. Type 2 diabetes mellitus with blood sugar that is seemed to be reasonably although not optimally controlled. 4. Hypertension, seemed to be reasonably controlled. 4. Coronary artery disease with no evidence of significant coronary artery obstruction. The patient is having no chest pain. 5. Severe protein-calorie malnutrition. 6. Deep vein thrombosis prophylaxis in the form of heparin. PLAN: Plan is to obviously continue with the IV fluid, continue with vancomycin 250 mg 4 times a day, continue heparin 5000 units subcutaneously q. 12 hours, continue with pain management and all other medication. We will continue IV fluid and follow her labs closely. Once the diarrhea subsides, she can be discharged home to finish treatment as an outpatient. FADI CHANDLER MD DR: ANN-MARIE/otoniel JOB#: [id number] / [id number]
[2017-06-20] VITALS (18 sets, daily range): BP systolic 95–142; BP diastolic 48–60
[2017-06-20 06:16] LABS: HEMATOCRIT 32.9 % (36.0-47.0); HEMOGLOBIN 10.9 g/dL (12.0-15.5); RED BLOOD COUNT 3.58 x10^6/uL (3.50-5.40); RED CELL DISTRIBUTION WIDTH 13.4 % (11.5-14.5); WHITE BLOOD COUNT 17.2 x10^3/uL (4.0-11.0)
[2017-06-20 06:19] LABS: CALCIUM 7.6 mg/dL (8.5-10.1); CREATININE 1.1 mg/dL (0.6-1.0); GFR 47.1; MAGNESIUM 1.9 mg/dL (1.8-2.4); POTASSIUM 3.9 mmol/L (3.5-5.1)
[2017-06-20] MEDS: METOPROLOL SUCC 24HR ER 50 MG TAB.ER.24H. PO SCH ×2 (07:48→22:01)
[2017-06-20] MEDS: ASPIRIN 81 MG TAB.CHEW PO SCH (07:48)
[2017-06-20] MEDS: GABAPENTIN 300 MG CAPSULE. PO SCH (07:48)
[2017-06-20] MEDS: VERAPAMIL 240 MG PO SCH (07:48)
[2017-06-20] MEDS: traMADol 50 MG TABLET PO SCH ×2 (07:49→21:56)
[2017-06-20] MEDS: HEPARIN PF for SUB-Q USE 5,000 UNIT/0.5 ML VIAL. SQ SCH ×2 (07:49→23:38)
[2017-06-20] MEDS: FAMOTIDINE 20 MG TABLET PO SCH (07:49)
[2017-06-20] MEDS: INSULIN ASPART 300 UNITS/3 ML INSULN.PEN SQ SCH ×3 (07:51→16:35)
[2017-06-20] MEDS: VANCOMYCIN 250 MG/5 ML ORAL SOLUTION. PO SCH ×4 (07:52→21:57)
[2017-06-20] MEDS: PRAMIPEXOLE 0.5 MG TABLET. PO SCH (21:56)
[2017-06-20] MEDS: LACTOBACILLUS RHAMNOSUS GG 1 CAPSULE. PO SCH (21:56)
[2017-06-20] MEDS: SIMVASTATIN 20 MG TABLET PO SCH (21:57)
[2017-06-20] MEDS: MONTELUKAST 10 MG TABLET. PO SCH (21:57)
[2017-06-20] MEDS: INSULIN DETEMIR 300 UNITS/3 ML INSULN.PEN. SQ SCH (22:00)
--- NOTE | 2017-06-20 23:16 | PN ---
DATE: 06/20/2017 SUBJECTIVE: The patient is resting, slightly propped up in bed, in no apparent respiratory distress. She still has bloating of her abdomen, however, her diarrhea is slowing down. Apparently, she was wheezy yesterday, so we discontinued her IV fluid. Apparently, she is eating and drinking. Her lab work continued to be improved consistently. PHYSICAL EXAMINATION: GENERAL: When I examined her, she was pale, but no jaundice, cyanosis, or thyromegaly. No jugular venous distention. No limb edema. VITAL SIGNS: Her heart rate was 55, blood pressure was 106/54, temperature was 98.4, respiratory rate was 16, and oxygen saturation was 96% on room air. HEAD, EYES, EARS, NOSE AND THROAT: Showed normocephalic, atraumatic. NECK: Supple. HEART: Showed normal first and second heart sounds with no gallop, rub or murmur. CHEST: Clear to auscultation. No crepitation or rhonchi. ABDOMEN: Distended, soft, nontender. No guarding or rigidity. No organomegaly. Hernial orifice intact. Bowel sounds normal. NEUROLOGIC: She is awake, alert, responding appropriately. Cranial nerves intact. She moves extremities without difficulty. Her intake over the last 24 hours was 5080. The output was incompletely recorded. LABORATORY DATA: Her chemistry this morning showed a serum sodium of 133, potassium 3.9, chloride 105, bicarbonate 22, anion gap of 6, BUN 19, creatinine 1.1, estimated GFR was 47 mL per minute. Her glucose was still high at 220. Her calcium was 7.6 and magnesium was 1.9. Her white cell count is trending down slowly and today it is 17,200, hemoglobin 11, hematocrit 33, MCV 92, and platelet count 359,000. ASSESSMENT: 1. Sepsis with marked leukocytosis. The patient was found to be Clostridium difficile toxin positive for which she is now on p.o. vancomycin. 2. Acute on chronic kidney injury, improving. Serum creatinine is trending down from 2.1-1.1 today. 3. Type 2 diabetes mellitus with blood sugar that is suboptimally controlled. 4. Hypertension, seems to be reasonably controlled. 5. Coronary artery disease. No evidence of significant coronary artery obstruction. The patient is having no chest pain. 6. Severe protein calorie malnutrition. 7. Deep vein thrombosis prophylaxis in the form of heparin. PLAN: Plan is to obviously 1. Continue with p.o. vancomycin. 2. Continue with DVT prophylaxis in the form of heparin. 3. Continue with pain management. I did consult the physical and occupational therapy and hopefully, diarrhea subsides completely. She can be either discharged home or to a swing bed. FADI CHANDLER MD DR: ANN-MARIE/otoniel JOB#: [id number] / [id number]
[2017-06-21] VITALS (8 sets, daily range): BP systolic 62–114; BP diastolic 47–60
[2017-06-21 06:23] LABS: BASO # 0.1 x10^3/uL (0.0-0.2); BASO % 0 % (0-3); EOS # 0.6 x10^3/uL (0.0-0.7); EOS % 4 % (0-3); HEMOGLOBIN 11.2 g/dL (12.0-15.5); LYMPH # 1.9 x10^3/uL (1.0-4.8); LYMPH % 12 % (24-48); MEAN CORPUSCULAR HEMOGLOBIN 31 pg (25-35); MEAN CORPUSCULAR HGB CONC 34 g/dL (31-37); MEAN CORPUSCULAR VOLUME 91 fL (79-100); MONO # 1.1 x10^3/uL (0.0-1.1); MONO % 7 % (0-9); NEUT # 12.1 x10^3uL (1.8-7.7); NEUT % 77 % (31-73); PLATELET COUNT 355 x10^3/uL (140-400); RED BLOOD COUNT 3.61 x10^6/uL (3.50-5.40); RED CELL DISTRIBUTION WIDTH 13.2 % (11.5-14.5); WHITE BLOOD COUNT 15.7 x10^3/uL (4.0-11.0)
[2017-06-21 06:28] LABS: CREATININE 1.1 mg/dL (0.6-1.0); GFR 47.1; POTASSIUM 3.8 mmol/L (3.5-5.1)
[2017-06-21] MEDS: ASPIRIN 81 MG TAB.CHEW PO SCH (07:53)
[2017-06-21] MEDS: traMADol 50 MG TABLET PO SCH (07:54)
[2017-06-21] MEDS: GABAPENTIN 300 MG CAPSULE. PO SCH (07:54)
[2017-06-21] MEDS: LACTOBACILLUS RHAMNOSUS GG 1 CAPSULE. PO SCH (07:54)
[2017-06-21] MEDS: VERAPAMIL 240 MG PO SCH (07:54)
[2017-06-21] MEDS: VANCOMYCIN 250 MG/5 ML ORAL SOLUTION. PO SCH (07:55)
[2017-06-21] MEDS: FAMOTIDINE 20 MG TABLET PO SCH (07:55)
[2017-06-21] MEDS: METOPROLOL SUCC 24HR ER 50 MG TAB.ER.24H. PO SCH (07:55)
[2017-06-21] MEDS: HEPARIN PF for SUB-Q USE 5,000 UNIT/0.5 ML VIAL. SQ SCH (07:56)
[2017-06-21] MEDS: INSULIN ASPART 300 UNITS/3 ML INSULN.PEN SQ SCH ×2 (07:56→12:13)
[2017-06-21 08:34] LABS: % BANDS 2 % (0-9); % EOS 4 % (0-5); % LYMPHS 10 % (24-48); % METAS 1 % (0-0); % MONOS 9 % (0-10); % SEGS 74 % (35-66)
[2017-06-21 08:36] LABS: PLATELET CLUMP PRESENT; PLT ESTIMATE ADEQUATE (ADEQUATE); POLYCHROMASIA SLIGHT; TOXIC GRANULATION SLIGHT
[2017-06-21] MEDS ORDERED: VANC250C2 PO (12:10)
--- NOTE | 2017-06-21 19:25 | DS ---
DATE OF DISCHARGE: 06/21/2017 The patient is an 87-year-old female patient who was admitted on 06/17/2017 with a complaint of severe diarrhea that has been going on for 2 weeks prior to admission. Denied any blood in the stool. Denied any fever. Did have vomiting about 2 weeks ago, but none since. She stated her abdomen was markedly bloated and feels that as if she is . However, denied any abdominal pain. She was evaluated in the Emergency Room. Initial evaluation showed that she was septic with marked leukocytosis. Her stools came back positive for C. diff toxins and was started on oral vancomycin. She also was found to have a lactic acidosis and severe hypokalemia and acute kidney injury. Her diarrhea has subsided. Her white cell count came down slowly from 28,000 to 15,000. Serum potassium has normalized. Her BUN and creatinine came down to 21 and a creatinine of 1.1. The patient has been up and about, continued to have diarrhea but much less, and a decision was made to discharge her home with home health. On questioning her today, she felt generally well. Denied any abdominal pain. She has been up and about without difficulty. PHYSICAL EXAMINATION: GENERAL: When I examined her, she was pale, no jaundice, cyanosis, or thyromegaly. No jugular venous distension. No limb edema. VITAL SIGNS: Her heart rate was 70, blood pressure 114/60, temperature was 98.4, respiratory rate was 18 and oxygen saturation was 95%. HEAD, EYES, EARS, NOSE AND THROAT: Showed normocephalic, atraumatic. NECK: Supple. HEART: Showed normal first and second sounds. No gallop, rub or murmur. CHEST: Clear to auscultation. No crepitation or rhonchi. ABDOMEN: Distended, soft, nontender. No guarding or rigidity. No organomegaly. Hernial orifices intact. Bowel sounds normal. NEUROLOGIC: She is awake, alert, somewhat hard of hearing, but all other cranial nerves are intact. She moves extremities without difficulty. She ambulates without assistance or assistive devices. Her intake was 2970, output was 800 as of this morning. Her serum sodium was 136, potassium 3.8, chloride 105, bicarbonate 23, anion gap of 8, BUN 21, creatinine 1.1, estimated GFR was 47 mL per minute. Her glucose __ and calcium was 8 and magnesium was 1.9. Her white cell count was 15,700, hemoglobin 11, hematocrit 33, MCV 91, and platelet count of 355,000. Her nasal screen for MRSA was negative. Stool for occult blood was negative. Her stool for C. diff toxin by PCR was positive. DISCHARGE MEDICATIONS: She will be discharged home to continue on following medication: Lactobacillus 1 capsule twice a day. She is on insulin sliding scale before meals, verapamil 240 mg once a day, gabapentin 600 mg once daily, aspirin 81 mg once a day, tramadol 50 mg twice a day, simvastatin 20 mg at bedtime, Mirapex 0.5 mg at bedtime, montelukast 10 mg at bedtime, metoprolol succinate 50 mg p.o. b.i.d., Levemir insulin 40 units at bedtime, albuterol 2.5 mg by nebulizer every 4 hours, vancomycin 250 mg 4 times a day, famotidine 20 mg once a day, and ondansetron 8 mg every 8 hours as needed for nausea and vomiting. FINAL DISCHARGE DIAGNOSES 1. Severe sepsis with marked leukocytosis. The patient was found to have Clostridium difficile toxin positive for which she is now on oral vancomycin 4 times a day. 2. Gupwx-db-hymgqqe kidney injury, improving. Her serum creatinine is down to 1.1. 3. Severe hypokalemia, resolved. Her serum potassium has risen from 2.7 to 3.8. 4. Type 2 diabetes mellitus, seems to be much better controlled. 5. Hypertension, seems to be also reasonably controlled. 6. Coronary artery disease; however, there is no evidence of significant coronary artery obstruction. The patient is having no chest pain. 7. Severe protein calorie malnutrition. 8. Deep vein thrombosis prophylaxis, for which she was on heparin. Plan is to discharge the patient to continue a 10-day course of vancomycin and follow with her primary care physician. She should be also discharged with home health. FADI CHANDLER MD DR: ANN-MARIE/otoniel JOB#: [id number] / [id number]
== END 2017-06-21 13:23 | disposition home health service (06) | DRG 871 ==
LOC: ER 18:36 → ICU 21:00
PROVIDERS: ADMIT Family Medicine; ATTEND Family Medicine
DX: A41.9 Sepsis, unspecified organism (principal); E43 Unspecified severe protein-calorie malnutrition; N17.9 Acute kidney failure, unspecified; A04.72 Enterocolitis due to Clostridium difficile, not specified as recurrent; E11.22 Type 2 diabetes mellitus with diabetic chronic kidney disease; E86.0 Dehydration; E87.1 Hypo-osmolality and hyponatremia; R65.20 Severe sepsis without septic shock; E87.6 Hypokalemia; I12.9 Hypertensive chronic kidney disease with stage 1 through stage 4 chronic kidney disease, or unspecified chronic kidney disease; I25.10 Atherosclerotic heart disease of native coronary artery without angina pectoris; K59.00 Constipation, unspecified; N18.9 Chronic kidney disease, unspecified; Z88.0 Allergy status to penicillin; Z90.711 Acquired absence of uterus with remaining cervical stump; Z90.49 Acquired absence of other specified parts of digestive tract
CPT/HCPCS: 36415; 74022; 74176; 80048; 80053; 80076; 82150; 82274; 82947; 83605; 83690; 83735; 84145; 84484; 85007; 85025; 85027; 85045; 85610; 85730; 86850; 86900; 86901; 87045; 87177; 87324; 87641; 93005; 96360; J1815; J3370; J7050; Q0162; 99285-25; J7030

== ENCOUNTER → 2017-09-25 | Outpatient (CLI) | payer MEDICARE ==
[2017-06-21 13:20] VITALS: BP 62/57
[~2017-09-25] MED LIST changes: +ALBU8.5H8 INH; +ALEN70TA5 PO; +DIPH1TAB PO; +FURO40TA4 PO; +GABA300C8 PO; +INSU100I27 SQ; +ONDA8TAB15 PO; +PRAM0.25 PO; +VANC250C2 PO
--- NOTE | 2017-09-25 13:12 | RAD ---
Indication: Right knee pain radiating down leg. Technique: 3 views of the right knee Comparison: None Findings: Status post total right knee arthroplasty. There is no periprostatic lucency to suggest hardware loosening. No dislocation. No acute fracture. Trace suprapatellar effusion. Peripheral vascular disease. Impression: As above.
== END | disposition home or self-care (01) ==
LOC: DXRAD 11:24
PROVIDERS: ATTEND Family Medicine
DX: M25.561 Pain in right knee (principal); I73.9 Peripheral vascular disease, unspecified; Z98.890 Other specified postprocedural states
CPT/HCPCS: 73562

== ENCOUNTER → 2018-09-19 | Outpatient (CLI) | payer MEDICARE ==
[2017-06-21 13:20] VITALS: BP 62/57
[~2018-09-19] MED LIST changes: +ALBU2.5V8 INH; -ALBU8.5H8 INH; -ALEN70TA5 PO; +ALEN70TA6 PO; +HYDR-2145 PO; -HYDR25TA9 PO; -METF10002 PO; +METF10007 PO; -VANC250C2 PO; +VANC250C3 PO
--- NOTE | 2018-09-20 08:09 | RAD ---
Indication: Lower abdominal pain status post fall TECHNIQUE: 2 views of the abdomen and pelvis COMPARISON: None FINDINGS: Heart is normal in size. Julys lung bases are clear. Right upper quadrant clips suggesting cholecystectomy. No abnormally dilated bowel loops or air-fluid levels. Multilevel degenerative disease seen in the spine. Focal calcification is seen in the left upper quadrant compatible with calcified splenic aneurysm also seen on previous CT from 2017. IMPRESSION: No acute radiographic findings. Electronically signed by: Parker Ayala DO (09/20/2018 8:06 AM) [facility]
--- NOTE | 2018-09-20 08:11 | RAD ---
EXAM: 1. AP and lateral views of the right hip 2. AP and lateral views of the right femur DATE: 09/19/2018 4:40 PM INDICATION: Fall 2 wks ago, right hip, upper leg pain, and lower abdomen pain COMPARISON: CT 06/18/2017 FINDINGS: Right iliac wing sclerosis is again seen only partially evaluated. There is no evidence for acute fracture or dislocation. Atherosclerotic vascular calcifications are seen. Changes of right knee arthroplasty are partially profiled without definite hardware complication. Patellar enthesopathy. Decreased bone mineral density. IMPRESSION: 1. No evidence of acute fracture or dislocation. 2. Sclerotic focus within the right iliac wing is partially profiled, grossly unchanged to prior CT 06/18/2017. Electronically signed by: Perry Spring MD (09/20/2018 8:08 AM) [facility]
== END | disposition home or self-care (01) ==
LOC: RAD 16:10
PROVIDERS: ATTEND Family Medicine
DX: M25.551 Pain in right hip (principal); R10.30 Lower abdominal pain, unspecified; M79.651 Pain in right thigh; R10.2 Pelvic and perineal pain; M47.819 Spondylosis without myelopathy or radiculopathy, site unspecified; I70.90 Unspecified atherosclerosis; M76.891 Other specified enthesopathies of right lower limb, excluding foot; Z96.651 Presence of right artificial knee joint; W19.XXXA Unspecified fall, initial encounter; Y93.89 Activity, other specified; Y92.89 Other specified places as the place of occurrence of the external cause; Y99.8 Other external cause status
CPT/HCPCS: 73502; 73552; 74021

== ENCOUNTER → 2018-12-11 | Outpatient (CLI) | payer MEDICARE ==
[2017-06-21 13:20] VITALS: BP 62/57
[~2018-12-11] MED LIST changes: +IOHEXOL 300 MG/ML 75 ML VIAL. IV ONE; -MONT10TA6 PO; +MONT10TA80 PO
[2018-12-11 10:26] LABS: ALBUMIN 3.4 g/dL (3.4-5.0); ALBUMIN/GLOBULIN RATIO 0.7 (1.0-1.7); CALCIUM 9.7 mg/dL (8.5-10.1); CREATININE 1.6 mg/dL (0.6-1.0); GFR 30.5; TOTAL BILIRUBIN 0.3 mg/dL (0.2-1.0); TOTAL PROTEIN 8.1 g/dL (6.4-8.2)
--- NOTE | 2018-12-11 18:01 | RAD ---
CT scan of the left foot without contrast 12/11/2018 CLINICAL HISTORY: Osteomyelitis involving the left middle toe. TECHNIQUE: Unenhanced, contiguous, 0.625 mm axial sections were obtained through the left ankle and foot. 2 mm reconstructed sagittal, axial and coronal images were obtained. One or more of the following individualized dose reduction techniques were utilized for this study: 1. Automated exposure control. 2. Adjustment of the mA and/or kV according to patient size. 3. Use of iterative reconstruction technique. FINDINGS: Edema is seen within the subcutaneous fat throughout the left ankle and left foot. No abnormal fluid collection is seen to suggest evidence of an abscess. There is diffuse osteopenia the visualized bony structures. A wire is seen within the proximal phalanx of the left first toe. No fracture or dislocation of the left ankle or left foot is seen. Mild to moderate degenerative changes are seen involving the left ankle joint. Mild to moderate degenerative changes are seen involving the tarsal, midtarsal and tarsometatarsal joints along with the MTP and interphalangeal joints throughout the left foot. Partially calcified tophi are seen surrounding the first MTP joint consistent with gout. These measure 3 mm to 1.5 cm in size. Moderate enthesophyte formation is seen involving the posterior aspect of the left calcaneus. Soft tissue swelling and increased attenuation is seen involving the distal soft tissues of the left third toe. Irregularity of the skin surface is seen in this region which extends to abut the terminal tuft. The terminal tuft of the distal phalanx of the of the left third toe is irregular. These findings would be consistent with patient's history of osteomyelitis. IMPRESSION: Findings are seen concerning for osteomyelitis involving the terminal tuft of the distal phalanx of the left third toe as discussed above. Electronically signed by: Kirill Jeffrey MD (12/11/2018 5:58 PM) [facility]
== END | disposition home or self-care (01) ==
LOC: CT 09:46
PROVIDERS: ATTEND Family Medicine
DX: M85.872 Other specified disorders of bone density and structure, left ankle and foot (principal); M86.171 Other acute osteomyelitis, right ankle and foot; R60.0 Localized edema
CPT/HCPCS: 36415; 73700; 80053

== ENCOUNTER → 2019-04-09 | Outpatient (CLI) | payer MEDICARE ==
[2017-06-21 13:20] VITALS: BP 62/57
[~2019-04-09] MED LIST changes: -IOHEXOL 300 MG/ML 75 ML VIAL. IV ONE; +REGADENOSON 0.4 MG/5 ML DISP.SYRIN. IV ONE
--- NOTE | 2019-04-09 13:26 | RAD ---
MR#: [id number] Date of Study: 04/09/2019 Ordering Physician: LIZETTE VILLALPANDO Referring Physician: KEN GRAHAM Tech: RASHMI Akins APPROVED REPORT Test Type: Pharmacological Stress Nurse/Tech: RASHMI Akins Test Indications: PAD Cardiac History: none Medications: see EHR Medical History: see EHR Resting Heart Rate: 62 bpm Resting Blood Pressure: 153/53mmHg Pretest Chest Pain: None Nurse/Tech Notes Consent: The procedure was explained to the patient in lay terms. Informed consent was witnessed. Oscar eout was entered into [employer]. History and Stress Test performed by RASHMI Akins Pharm. Details Pharmacologic stress testing was performed using 0.4mg per 5ml of regadenoson given intravenously ove r 7-10 seconds. POST EXERCISE Max HR: 73 bpm Max Blood Pressure: 142/47mmHg Blood Pressure response to exercise: Normal blood pressure response during stress. Heart Rate response to exercise: normal response Chest Pain: No. INTERPRETATION Stress EKG Conclusion: The resting EKG shows a sinus rhythm with a mild nonspecific T-wave abnormalit y. The stress EKG shows no significant changes from baseline. No EKG evidence of stress-induced ischemia. Imaging Protocol IMAGE PROTOCOL: Rest Tc-99m/stress Tc-99m 1 day Rest: Stress: Viability: Radiopharm.Tc99m XdesluwmmNi42l Sestamibi Zorf79uIh 33mCi Duration 15min. 10min. Img Date 04/09/2019 04/09/2019 Inj-Img Eapb48gic. 60min. Rest Admin Site:IV - Left AntecubitalAdministrator: RASHMI Akins Stress Admin Site: IV - Left AntecubitalAdministrator: RASHMI Akins STRESS DATA End Diast. Vol.65.0mlAv. Heart Rate68.0bpm End Syst. Vol.5.0mlCO Index BSA0.0L/min Myocardial Quag380.0gEject. Jviqoffg85.0% Stress Rates Pk. Fill Rate4.07EDV/secLVtime Pk. Fill 137.98msec Pk. Empty Rate4.65ESV/secLVtime Pk. Ifxjv173.66msec 1/3 Pk. Fill2.24EDV/sec Stress Scores Regional WT0.00Summed WT0.00 Regional WM0.00Summed WM0.00 LV Perfusion The stress scans showed no significant defects. The rest scans showed no significant defects. Nuclear imaging shows no reversible ischemia or infarct. Wall Motion Left ventricular systolic function is hyperdynamic with no regional wall motion abnormalities and an ejection fraction of greater than 70%. LV Perf. Quant 17 Seg. SSS1.00 17 Seg. SRS0.00 17 Seg. SDS1.00 Stress Defect Extent (% LAD)0.00Rest Defect Extent (% LAD)0.00Rev. Defect Extent (% LAD)0.00 Stress Defect Extent (% LCX) 0.00Rest Defect Extent (% LCX)0.00Rev. Defect Extent (% LCX)0.00 Stress Defect Extent (% RCA)0.00Rest Defect Extent (% RCA)0.00Rev. Defect Extent (% RCA)0.00 Stress Defect Extent (% NIRMALA)0.00Rest Defect Extent (% NIRMALA)0.00Rev. Defect Extent (% NIRMALA)0.00 Conclusion 1. No EKG evidence of stressed induced ischemia. 2. Nuclear imaging shows no reversible ischemia or infarct. 3. Left ventricular systolic function is greater than 70%. 4. Moderately low risk Lexiscan nuclear stress test. Signed by : Familia Harley MD Electronically Approved : 04/09/2019 13:25:55
== END | disposition home or self-care (01) ==
LOC: NM 07:05
PROVIDERS: ATTEND Internal Medicine Cardiovascular Disease
DX: I73.9 Peripheral vascular disease, unspecified (principal); J44.9 Chronic obstructive pulmonary disease, unspecified; I10 Essential (primary) hypertension
CPT/HCPCS: 78452; 93017; A9500; J2785

== ENCOUNTER 2019-05-13 17:56 | Inpatient (IN) | payer MEDICARE ==
[~2019-05-13] VITALS: Ht 154.9 cm; Wt 82.3 kg
[~2019-05-13 17:56] MED LIST changes: -REGADENOSON 0.4 MG/5 ML DISP.SYRIN. IV ONE; +SIMV20TA18 PO; -SIMV20TA3 PO
[2019-05-13 18:17] VITALS: BP 154/77
[2019-05-13] MEDS ORDERED: ALLO100T PO (18:23)
[2019-05-13] MEDS ORDERED: METO50TA6 PO (18:23)
[2019-05-13] MEDS ORDERED: CALC-167 PO (18:23)
[2019-05-13] MEDS ORDERED: MULT-735 PO (18:23)
[2019-05-13] MEDS ORDERED: LACT1CAP19 PO (18:23)
[2019-05-13] MEDS ORDERED: MIRT30TA PO (18:23)
[2019-05-13] MEDS ORDERED: CLOT15CR5 TP (20:59)
[2019-05-13 21:20] VITALS: BP 124/69
[2019-05-13] MEDS: oxyCODONE/APAP 5/325 1 TAB TABLET PO PRN (21:23)
[2019-05-13] MEDS: MIRTAZAPINE 30 MG TABLET PO SCH (21:23)
[2019-05-13] MEDS: GABAPENTIN 300 MG CAPSULE. PO SCH (21:23)
[2019-05-13] MEDS: ALLOPURINOL 100 MG TABLET. PO SCH (21:23)
[2019-05-13] MEDS: METOPROLOL TART IMMED RELEASE 50 MG TABLET PO SCH (21:25)
[2019-05-13] MEDS: CLOTRIMAZOLE/BETAMETH 1%-0.05% TOPICAL CREAM 15GM TUBE. TP SCH (21:25)
[2019-05-14 02:00] VITALS: BP 123/67
[2019-05-14 05:45] VITALS: BP 121/69
[2019-05-14] MEDS: MEROPENEM 500 MG in IV NORMAL SALINE 50ML 50 ML IV SCH ×3 (06:14→21:14)
[2019-05-14] MEDS: CALCIUM CARB/VIT D3 500/200 TABLET PO SCH ×2 (08:13→16:47)
[2019-05-14] MEDS: MULTIVITAMIN with MINERAL TABLET. PO SCH (08:13)
[2019-05-14] MEDS: ASPIRIN 81 MG TAB.CHEW PO SCH (08:13)
[2019-05-14] MEDS: GLIMEPIRIDE 2 MG TABLET PO SCH ×2 (08:14→16:47)
[2019-05-14] MEDS: METOPROLOL TART IMMED RELEASE 50 MG TABLET PO SCH ×2 (08:14→19:40)
[2019-05-14] MEDS: ALLOPURINOL 100 MG TABLET. PO SCH ×3 (08:14→19:40)
[2019-05-14] MEDS: FUROSEMIDE 40 MG TABLET PO SCH (08:14)
[2019-05-14] MEDS: GABAPENTIN 300 MG CAPSULE. PO SCH ×3 (08:15→19:40)
[2019-05-14] MEDS: LACTOBACILLUS RHAMNOSUS GG 1 CAPSULE. PO SCH (08:15)
[2019-05-14] MEDS: CLOTRIMAZOLE/BETAMETH 1%-0.05% TOPICAL CREAM 15GM TUBE. TP SCH ×2 (08:15→19:39)
[2019-05-14] MEDS: VERAPAMIL SR 120 MG TABLET.ER. PO SCH (08:16)
[2019-05-14] MEDS: oxyCODONE/APAP 5/325 1 TAB TABLET PO PRN ×2 (09:26→19:39)
--- NOTE | 2019-05-14 15:11 | HP ---
ADMIT DATE: 05/13/2019 HISTORY OF PRESENT ILLNESS: The patient is an 89-year-old female patient who was basically admitted [facility]. She has diabetic foot ulcer and there was a concern that she might have osteomyelitis. The patient was started on IV antibiotic and apparently her wound culture has grown methicillin-sensitive Staphylococcus aureus and she also grew mixed skin juan ramon including Streptococcus species, Enterococcus faecalis. She was initially on IV vancomycin that was apparently discontinued and she was switched to cefepime and eventually she was switched to ertapenem and was transferred to swing bed to continue with IV antibiotic and wound care together with physical and occupational therapy with a plan to continue treatment for 2-3 weeks. When I questioned her this afternoon, she did complain of pain in her right foot, but denied any other complaint. PAST MEDICAL HISTORY: Significant for type 2 diabetes mellitus, hypertension, hyperlipidemia, generalized osteoarthritis. She had apparently a right ankle fracture, status post open reduction internal fixation. PAST SURGICAL HISTORY: Significant for right big toe amputation. She also has bilateral shoulder rotator cuff surgery and bilateral total knee arthroplasty. She also has appendectomy and partial hysterectomy. ALLERGIES: SHE IS ALLERGIC TO PENICILLIN. FAMILY HISTORY: Noncontributory. SOCIAL HISTORY: She is and lives with her . She does not smoke, drink alcohol or use any recreational drugs. REVIEW OF SYSTEMS: As per history of present illness. MEDICATIONS: She was transferred to swing bed in [facility] to continue on following medications: Metoprolol tartrate 50 mg twice a day, verapamil 240 mg once a day, aspirin 81 mg once a day, gabapentin 300 mg 3 times a day, mirtazapine 30 mg at bedtime, calcium carbonate with vitamin D3 one tablet twice a day, furosemide 40 mg daily, lactobacillus rhamnosus for Culturelle 1 capsule daily. She is on glimepiride 4 mg twice a day, clotrimazole, betamethasone cream applied topically twice a day for rash in her upper back. She also has multivitamin 1 tablet once a day, allopurinol 100 mg 3 times a day and alendronate 70 mg once a week. PHYSICAL EXAMINATION: GENERAL: When I examined her this afternoon, she was resting flat, comfortably in bed, in no apparent distress, slightly pale, but no jaundice, cyanosis or thyromegaly. No jugular venous distention. No limb edema. VITAL SIGNS: Her heart rate was 66, blood pressure was 121/69, temperature was 97.8, respiratory rate was 18 and oxygen saturation was 94%. HEAD, EYES, EARS, NOSE AND THROAT: Showed normocephalic, atraumatic. NECK: Supple. HEART: Showed normal first and second heart sounds. No gallop, rub or murmur. CHEST: Clear to auscultation. No crepitation or rhonchi. ABDOMEN: Distended, soft, nontender. No guarding or rigidity. No organomegaly. All hernial orifices intact. Bowel sounds normal. NEUROLOGIC: She was awake, alert, responding appropriately. All cranial nerves intact. EXTREMITIES: She moves extremities without difficulty. She is able to ambulate with a walker. Her showed amputation of the right big toe. She also had left heel ulcers covered with dressing. LABORATORY DATA: On the day of discharge showed a white cell count of 10,900, hemoglobin 9.8, hematocrit 30, MCV 93 and platelet count 380,000. Her chemistry showed a serum sodium 141, potassium 3.5, chloride 102, bicarbonate 32, anion gap of 7, BUN 51, creatinine 1.3, estimated GFR was 39 mL per minute. Her glucose 161, calcium was 9.2. Her vancomycin trough level was 11.5. ASSESSMENT AND PLAN: In summary, this is an 89-year-old female patient who was transferred from [facility] where she was treated for right calcaneal infected wound, probes to the bone, grew out methicillin-sensitive Staph aureus and Streptococcus. Her sedimentation rate was 113 mm per hour on 05/12. She has right calcaneal and heel cellulitis, the latter has improved. Leukocytosis, resolved. Type 2 diabetes, hypertension, peripheral arterial disease, obesity and constipation. The plan is to continue with Invanz 1 gram once a day. Should have weekly labs including CBC, BUN, creatinine, sed rate and to fax to [phone]. To continue with the probiotic and to be followed by Wound Care team and should follow with the Infectious Disease Clinic in 2-3 weeks' time. The phone number there is [phone]. FADI CHANDLER MD DR: ANN-MARIE/otoniel JOB#: [id number] / [id number]
[2019-05-14] MEDS ORDERED: ERTAPENEM 1 GM in IV NORMAL SALINE 50ML 50 ML IV SCH (16:00)
[2019-05-14 17:57] VITALS: BP 126/69
[2019-05-14] MEDS: MIRTAZAPINE 30 MG TABLET PO SCH (19:40)
[2019-05-14] MEDS ORDERED: NPH,100I3 SQ (19:57)
[2019-05-14] MEDS ORDERED: INSULIN NPH/REG HUM 70/30 300 UNITS/3 ML VIAL. SQ SCH (21:00)
[2019-05-15] MEDS: oxyCODONE/APAP 5/325 1 TAB TABLET PO PRN ×2 (02:21→09:31)
[2019-05-15] MEDS: MEROPENEM 500 MG in IV NORMAL SALINE 50ML 50 ML IV SCH ×2 (05:38→13:17)
[2019-05-15 06:27] LABS: HEMATOCRIT 30.6 % (36.0-47.0); HEMOGLOBIN 9.9 g/dL (12.0-15.5); RED BLOOD COUNT 3.27 x10^6/uL (3.50-5.40); RED CELL DISTRIBUTION WIDTH 15.5 % (11.5-14.5); WHITE BLOOD COUNT 10.7 x10^3/uL (4.0-11.0)
[2019-05-15 06:32] VITALS: BP 122/68
[2019-05-15 06:51] LABS: ALBUMIN 2.2 g/dL (3.4-5.0); ALBUMIN/GLOBULIN RATIO 0.5 (1.0-1.7); CREATININE 1.2 mg/dL (0.6-1.0); GFR 42.4; POTASSIUM 3.7 mmol/L (3.5-5.1); TOTAL BILIRUBIN 0.1 mg/dL (0.2-1.0); TOTAL PROTEIN 6.6 g/dL (6.4-8.2)
[2019-05-15] MEDS: GLIMEPIRIDE 2 MG TABLET PO SCH (09:25)
[2019-05-15] MEDS: GABAPENTIN 300 MG CAPSULE. PO SCH ×2 (09:26→13:17)
[2019-05-15] MEDS: FUROSEMIDE 40 MG TABLET PO SCH (09:26)
[2019-05-15] MEDS: METOPROLOL TART IMMED RELEASE 50 MG TABLET PO SCH (09:26)
[2019-05-15] MEDS: ASPIRIN 81 MG TAB.CHEW PO SCH (09:26)
[2019-05-15] MEDS: MULTIVITAMIN with MINERAL TABLET. PO SCH (09:26)
[2019-05-15] MEDS: CALCIUM CARB/VIT D3 500/200 TABLET PO SCH (09:26)
[2019-05-15] MEDS: ALLOPURINOL 100 MG TABLET. PO SCH ×2 (09:26→13:16)
[2019-05-15] MEDS: LACTOBACILLUS RHAMNOSUS GG 1 CAPSULE. PO SCH (09:26)
[2019-05-15 09:27] VITALS: BP 122/68
[2019-05-15] MEDS: CLOTRIMAZOLE/BETAMETH 1%-0.05% TOPICAL CREAM 15GM TUBE. TP SCH (09:27)
[2019-05-15] MEDS: VERAPAMIL SR 120 MG TABLET.ER. PO SCH (09:27)
[2019-05-16] MEDS ORDERED: ALENDRONATE SODIUM 35 MG TABLET PO SCH (07:00)
== END 2019-05-15 15:04 | disposition short-term general hospital (02) | DRG 603 ==
LOC: LND 17:56
PROVIDERS: ADMIT Internal Medicine; ATTEND Internal Medicine
DX: L03.115 Cellulitis of right lower limb (principal); E11.51 Type 2 diabetes mellitus with diabetic peripheral angiopathy without gangrene; I10 Essential (primary) hypertension; E78.5 Hyperlipidemia, unspecified; M15.9 Polyosteoarthritis, unspecified; Z96.653 Presence of artificial knee joint, bilateral; Z90.49 Acquired absence of other specified parts of digestive tract; Z90.711 Acquired absence of uterus with remaining cervical stump; Z88.8 Allergy status to other drugs, medicaments and biological substances; K59.00 Constipation, unspecified; E66.9 Obesity, unspecified
CPT/HCPCS: 36415; 80053; 82947; 85027; 85651; J1815; J2185; 97110; 97535

== ENCOUNTER 2019-05-21 19:14 | Inpatient (IN) | payer MEDICARE ==
[~2019-05-21] VITALS: Ht 154.9 cm; Wt 83.1 kg
--- NOTE | 2019-05-21 19:00 | NUR ---
Swing Bed Admission [facility] given to patient. Nursing Problem: [facility], wound care services, and IV ABT r/t right heel DFU s/p I&D and osteomyelitis in hopes to return home with . Cognitive/Behavioral: Pt is A/Ox4, able to make needs known. Pt sitting up in bed doing crossword puzzles when approached for assessment, pleasant and interactive. Pt is mildly PALA. Pain: Pt reports intermittent shooting pains from right foot up to her knee, rates 4/10. Given PRN Percocet per pt request. RLE elevated on pillow while resting in bed. Respiratory Status: Lung sounds CTA. Pt sating upper 90's on RA with no cough or SOA noted. Skin: Pt has healing rash to upper backLotrimin christian BID. Right heel DFU s/p I&Dpt has wound vac in place set to 125 mmHg continuous pressure with 10ml NS for 5 min soak every 4 hours. Dressing C/D/I dated 05/20, wound care following for vac dressing changes. Coccyx intact. Bowel/Bladder Continence: Pt noted to have some stress incontinence, wears brief. Continent of bowel. LBM today 05/21/19, soft. ADL Functional Status: Pt requires boost to get up from chair or bed. Utilizes walker appropriately with limited assist. Pt toileted using BSC due to wound vac in place, requires x1 assist. Required minimal assist to don new brief. Pt already dressed in gown for HS. Independent mobility while in bed. Pt took HS pills whole, tolerated well. Declined HS snack. Fall(s) prior to admission? Pt denies. Admitted from? Inpatient at [facility]. At home with prior to that.
[~2019-05-21 19:14] MED LIST changes: +ALLO100T PO; +CALC-167 PO; +CLOT15CR5 TP; +LACT1CAP19 PO; +METO50TA6 PO; +MIRT30TA PO; +MULT-735 PO; +NPH,100I3 SQ
[2019-05-21] MEDS ORDERED: DEXTROSE 50% 25 GM / 50ML DISP.SYRIN. IV PRN (19:30)
[2019-05-21 19:36] VITALS: BP 157/67
[2019-05-21] MEDS ORDERED: ALEN35TA11 PO (20:49)
[2019-05-21] MEDS ORDERED: OXYC-325 PO (20:49)
[2019-05-21] MEDS: CLOTRIMAZOLE/BETAMETH 1%-0.05% TOPICAL CREAM 15GM TUBE. TP SCH (21:00)
[2019-05-21] MEDS ORDERED: NPH HUMAN INSULIN ISOPHANE SQ SCH (21:00)
[2019-05-21] MEDS ORDERED: ALEN70SO3 PO (21:17)
[2019-05-21] MEDS: metroNIDAZOLE 500 MG TABLET PO SCH (22:23)
[2019-05-21] MEDS: METOPROLOL TART IMMED RELEASE 50 MG TABLET PO SCH (22:24)
[2019-05-21] MEDS: GABAPENTIN 300 MG CAPSULE. PO SCH (22:24)
[2019-05-21] MEDS: MIRTAZAPINE 30 MG TABLET PO SCH (22:24)
[2019-05-21] MEDS: oxyCODONE/APAP 5/325 1 TAB TABLET PO PRN (22:25)
[2019-05-21] MEDS: CEFEPIME HCL 1 GM in IV NORMAL SALINE 50ML 50 ML IV SCH (22:25)
[2019-05-22 05:33] VITALS: BP 139/73
[2019-05-22] MEDS: CEFEPIME HCL 1 GM in IV NORMAL SALINE 50ML 50 ML IV SCH ×3 (06:03→20:50)
[2019-05-22] MEDS: ALENDRONATE SODIUM 35 MG TABLET PO SCH (06:03)
[2019-05-22 06:34] LABS: BASO # 0.1 x10^3/uL (0.0-0.2); BASO % 1 % (0-3); EOS # 0.9 x10^3/uL (0.0-0.7); EOS % 10 % (0-3); HEMATOCRIT 35.2 % (36.0-47.0); HEMOGLOBIN 11.5 g/dL (12.0-15.5); LYMPH # 2.4 x10^3/uL (1.0-4.8); LYMPH % 25 % (24-48); MEAN CORPUSCULAR HEMOGLOBIN 31 pg (25-35); MEAN CORPUSCULAR HGB CONC 33 g/dL (31-37); MEAN CORPUSCULAR VOLUME 94 fL (79-100); MONO # 0.9 x10^3/uL (0.0-1.1); MONO % 10 % (0-9); NEUT # 5.2 x10^3uL (1.8-7.7); NEUT % 55 % (31-73); PLATELET COUNT 449 x10^3/uL (140-400); RED BLOOD COUNT 3.76 x10^6/uL (3.50-5.40); RED CELL DISTRIBUTION WIDTH 16.3 % (11.5-14.5); WHITE BLOOD COUNT 9.5 x10^3/uL (4.0-11.0)
[2019-05-22 06:54] LABS: ALBUMIN 2.8 g/dL (3.4-5.0); ALBUMIN/GLOBULIN RATIO 0.7 (1.0-1.7); CALCIUM 9.5 mg/dL (8.5-10.1); CREATININE 1.5 mg/dL (0.6-1.0); GFR 32.8; POTASSIUM 3.5 mmol/L (3.5-5.1); TOTAL BILIRUBIN 0.3 mg/dL (0.2-1.0); TOTAL PROTEIN 6.9 g/dL (6.4-8.2)
--- NOTE | 2019-05-22 07:00 | NUR ---
Wound Care Wound care follow up for wound vac dressing change after transfer from [facility] yesterday. Vac dressing removed, wound cleansed, pictured and measured and vac dressing replaced. Vac changed from veraflo to continuous pressure at 125 mmHg with senior foam. No other wounds noted. Pt sleeping during visit. WC will return on Monday for next dressing change.
[2019-05-22 07:51] LABS: SEDIMENTATION RATE 50 (0-25)
[2019-05-22] MEDS: INSULIN LISPRO 300 UNITS/3 ML VIAL. SQ SCH ×3 (08:00→17:07)
[2019-05-22] MEDS: MULTIVITAMIN with MINERAL TABLET. PO SCH (08:22)
[2019-05-22] MEDS: LACTOBACILLUS RHAMNOSUS GG 1 CAPSULE. PO SCH ×2 (08:22→17:02)
[2019-05-22] MEDS: GABAPENTIN 300 MG CAPSULE. PO SCH ×3 (08:22→20:49)
[2019-05-22] MEDS: ALLOPURINOL 300 MG TABLET. PO SCH (08:22)
[2019-05-22] MEDS: METOPROLOL TART IMMED RELEASE 50 MG TABLET PO SCH ×2 (08:22→20:50)
[2019-05-22] MEDS: GLIMEPIRIDE 2 MG TABLET PO SCH ×2 (08:22→17:02)
[2019-05-22] MEDS: ASPIRIN 81 MG TAB.CHEW PO SCH (08:22)
[2019-05-22] MEDS: CALCIUM CARB/VIT D3 500/200 TABLET PO SCH ×2 (08:23→17:02)
[2019-05-22] MEDS: FUROSEMIDE 40 MG TABLET PO SCH (08:23)
[2019-05-22] MEDS: metroNIDAZOLE 500 MG TABLET PO SCH ×2 (08:23→20:49)
[2019-05-22] MEDS: VERAPAMIL SR 120 MG TABLET.ER. PO SCH (08:27)
--- NOTE | 2019-05-22 08:40 | NUR ---
IP: patient has hx of MRSA foot wound requires contact precautions.
[2019-05-22] MEDS: CLOTRIMAZOLE/BETAMETH 1%-0.05% TOPICAL CREAM 15GM TUBE. TP SCH ×2 (09:00→20:50)
[2019-05-22] MEDS: oxyCODONE/APAP 5/325 1 TAB TABLET PO PRN (13:32)
--- NOTE | 2019-05-22 18:00 | NUR ---
SKILL NURSING NOTE: Nursing Problem: Pt admitted to [facility] for PT/OT strengthening, wound care services, and IV ABT r/t right heel DFU s/p I&D and osteomyelitis in hopes to return home with . Cognitive/Behavioral: Pt is A/Ox4, able to make needs known. Pleasant and interactive. Pt is mildly [place]. Pain: Pt reports intermittent shooting pains from right foot up to her knee, rates 8/10. Given PRN Percocet per pt request at 1332 with noted improvement of pain. RLE elevated on pillow while resting in bed. Respiratory Status: Lung sounds CTA. Pt sating upper 90's on RA with no cough or SOA noted. Skin: Pt has healing rash to upper backLotrimin christian BID. Right heel DFU s/p I&Dpt has wound vac in place set to 125 mmHg continuous pressure with 10ml NS for 5 min soak every 4 hours. Dressing C/D/I changed by wound care nurse this am, wound care following for vac dressing changes next to be done on monday. Coccyx intact. Bowel/Bladder Continence: Pt noted to have some stress incontinence, wears brief. Continent of bowel. LBM today 05/22/19 x2 soft. ADL Functional Status: Pt needs stand by assist with transfers and ambulation. Utilizes walker appropriately with limited assist d/t wound vac. Pt toileted, requires x1 minimal assist. Required minimal assist to don new brief. Independent mobility while in bed. Pt takes medication pills whole, tolerated well.
[2019-05-22 18:32] VITALS: BP 131/84
--- NOTE | 2019-05-22 19:45 | NUR ---
PT was very pleasant tonight. PT complained of no pain. PT calm and cooperative with cares. IV flushed in red line only. Addendum: 05/23/19 at 1949 by FLOYD SAEZ RN RN Correction: PT complained of minimal pain. IV flushed appropriately.
[2019-05-22 20:35] VITALS: BP 144/69
[2019-05-22] MEDS: MIRTAZAPINE 30 MG TABLET PO SCH (20:49)
[2019-05-22] MEDS ORDERED: INSULIN NPH/REG HUM 70/30 300 UNITS/3 ML VIAL. SQ SCH (21:00)
[2019-05-23 05:27] VITALS: BP 145/82
[2019-05-23] MEDS: CEFEPIME HCL 1 GM in IV NORMAL SALINE 50ML 50 ML IV SCH ×3 (06:07→22:19)
[2019-05-23] MEDS: CALCIUM CARB/VIT D3 500/200 TABLET PO SCH ×2 (07:59→16:49)
[2019-05-23] MEDS: VERAPAMIL SR 120 MG TABLET.ER. PO SCH (07:59)
[2019-05-23] MEDS: FUROSEMIDE 40 MG TABLET PO SCH (07:59)
[2019-05-23] MEDS: metroNIDAZOLE 500 MG TABLET PO SCH ×2 (07:59→20:33)
[2019-05-23] MEDS: GABAPENTIN 300 MG CAPSULE. PO SCH ×3 (08:00→20:33)
[2019-05-23] MEDS: ASCORBIC ACID 500 MG TABLET PO SCH (08:00)
[2019-05-23] MEDS: MULTIVITAMIN with MINERAL TABLET. PO SCH (08:00)
[2019-05-23] MEDS: METOPROLOL TART IMMED RELEASE 50 MG TABLET PO SCH ×2 (08:00→20:33)
[2019-05-23] MEDS: ALLOPURINOL 300 MG TABLET. PO SCH (08:00)
[2019-05-23] MEDS: LACTOBACILLUS RHAMNOSUS GG 1 CAPSULE. PO SCH ×2 (08:00→16:54)
[2019-05-23] MEDS: ASPIRIN 81 MG TAB.CHEW PO SCH (08:01)
[2019-05-23] MEDS: GLIMEPIRIDE 2 MG TABLET PO SCH ×2 (08:02→16:49)
[2019-05-23] MEDS: CLOTRIMAZOLE/BETAMETH 1%-0.05% TOPICAL CREAM 15GM TUBE. TP SCH ×2 (08:03→20:49)
[2019-05-23] MEDS: INSULIN LISPRO 300 UNITS/3 ML VIAL. SQ SCH ×3 (08:33→16:54)
--- NOTE | 2019-05-23 16:57 | NUR ---
Nursing Problem: [facility] for PT/OT strengthening, wound care services, and IV ABT r/t right heel DFU s/p I&D and osteomyelitis in hopes to return home with . Cognitive/Behavioral: Pt is A/Ox4, able to make needs known. Pleasant and interactive. Pt is mildly [place]. Pain: No c/o pain noted thus far this shift. RLE elevated on pillow while resting in bed. Respiratory Status: Lung sounds CTA. Pt sating upper 90's on RA with no cough or SOA noted. Skin: Pt has healing rash to upper backLotrimin christian BID. Right heel DFU s/p I&Dpt has wound vac in place set to 125 mmHg continuous pressure with 10ml NS for 5 min soak every 4 hours. Dressing C/D/I changed by wound care nurse 05/22, wound care following for vac dressing changes next to be done on 05/24. Coccyx intact. Bowel/Bladder Continence: Pt noted to have some stress incontinence, wears brief. Continent of bowel. LBM today 05/23/19 soft. ADL Functional Status: Pt needs stand by assist with transfers and ambulation. Utilizes walker appropriately with limited assist d/t wound vac. Pt toileted, requires x1 minimal assist. Required minimal assist to don new brief. Independent mobility while in bed. Pt takes medication pills whole, tolerated well.
--- NOTE | 2019-05-23 17:53 | NUR ---
NURSING NOTES: PATIENT WAS WALKING BACK TO ROOM FROM DINGING TABLE AFTER EVENING MEAL. PATIENT STATED SHE NEEDED TO GO TO THE BATHROOM ONCE ENTERING THE PATIENT'S ROOM. WALKING INTO THE BATHROOM PATIENTS KNEES BUCKLED BUT HARNESS FITTER WAS ABLE TO STABILIZE PATIENT AND CONTINUED WALKING TO TOILET. AFTER TOILETING HARNESS FITTER HELPED PATIENT TO BED AND PATIENT'S KNEES BUCKLED AGAIN. HARNESS FITTER WAS AGAIN ABLE TO STABILIZE PATIENT AND ASSIST TO BED. PATIENT STATED HER KNEES JUST BECAME WEAK EACH TIME BUT SHE WAS OKAY.
[2019-05-23 17:54] VITALS: BP 171/65
[2019-05-23 20:17] VITALS: BP 145/69
[2019-05-23] MEDS: MIRTAZAPINE 30 MG TABLET PO SCH (20:33)
[2019-05-23] MEDS: INSULIN GLARGINE SYRINGE. SQ SCH (20:49)
[2019-05-23] MEDS: oxyCODONE/APAP 5/325 1 TAB TABLET PO PRN (22:19)
[2019-05-24 06:03] VITALS: BP 154/66
[2019-05-24] MEDS: CEFEPIME HCL 1 GM in IV NORMAL SALINE 50ML 50 ML IV SCH ×3 (06:04→22:05)
[2019-05-24] MEDS: LACTOBACILLUS RHAMNOSUS GG 1 CAPSULE. PO SCH ×2 (08:44→17:20)
[2019-05-24] MEDS: METOPROLOL TART IMMED RELEASE 50 MG TABLET PO SCH ×2 (08:44→21:24)
[2019-05-24] MEDS: ASCORBIC ACID 500 MG TABLET PO SCH (08:44)
[2019-05-24] MEDS: CALCIUM CARB/VIT D3 500/200 TABLET PO SCH ×2 (08:44→17:20)
[2019-05-24] MEDS: FUROSEMIDE 40 MG TABLET PO SCH (08:44)
[2019-05-24] MEDS: ALLOPURINOL 300 MG TABLET. PO SCH (08:44)
[2019-05-24] MEDS: GLIMEPIRIDE 2 MG TABLET PO SCH ×2 (08:44→17:20)
[2019-05-24] MEDS: metroNIDAZOLE 500 MG TABLET PO SCH ×2 (08:44→21:10)
[2019-05-24] MEDS: GABAPENTIN 300 MG CAPSULE. PO SCH ×3 (08:44→21:09)
[2019-05-24] MEDS: ASPIRIN 81 MG TAB.CHEW PO SCH (08:45)
[2019-05-24] MEDS: MULTIVITAMIN with MINERAL TABLET. PO SCH (08:45)
[2019-05-24] MEDS: CLOTRIMAZOLE/BETAMETH 1%-0.05% TOPICAL CREAM 15GM TUBE. TP SCH ×2 (08:46→21:24)
[2019-05-24] MEDS: VERAPAMIL SR 120 MG TABLET.ER. PO SCH (08:47)
[2019-05-24] MEDS: INSULIN LISPRO 300 UNITS/3 ML VIAL. SQ SCH ×3 (08:52→17:24)
--- NOTE | 2019-05-24 16:11 | NUR ---
SKILL NURSING NOTE: Nursing Problem: [facility] for PT/OT strengthening, wound care services, and IV ABT r/t right heel DFU s/p I&D and osteomyelitis in hopes to return home with . Cognitive/Behavioral: Pt is A/Ox4. Pleasant and cooperative with cares. Pt is mildly [place]. Pain: Pt has not voiced pain issues. Respiratory Status: Lung sounds CTA. Pt sating upper 90's on RA with no cough or SOA noted. Skin: Pt rash on back has healed. Right heel DFU s/p I&Dpt has wound vac in place set to 125 mmHg continuous pressure with 10ml NS for 5 min soak every 4 hours. Coccyx intact. Bowel/Bladder Continence: Pt noted to have some stress incontinence, wears brief. Continent of bowel. LBM 05/24. ADL Functional Status: Pt needs stand by assist with gait belt and walker for transfers and ambulation. Utilizes walker appropriately with limited assist d/t wound vac. Pt toileted, requires x1 minimal assist. Required minimal assist to don new brief. Independent mobility while in bed. Pt takes medication pills whole, tolerated well.
[2019-05-24 18:00] VITALS: BP 136/76
--- NOTE | 2019-05-24 18:31 | NUR ---
Wound Care Wound care follow up for right foot wound vac dressing change. Wound vac removed, dressing removed, wound cleansed and vac reapplied with good seal obtained. Pt seated in chair for dressing change, no complaints of pain. WC will return Monday for next dressing change.
[2019-05-24] MEDS: INSULIN GLARGINE SYRINGE. SQ SCH (21:08)
[2019-05-24] MEDS: oxyCODONE/APAP 5/325 1 TAB TABLET PO PRN (21:10)
[2019-05-24] MEDS: MIRTAZAPINE 30 MG TABLET PO SCH (21:10)
--- NOTE | 2019-05-24 21:10 | NUR ---
Patient care assumed from Gillian RN. HS medications given with insulin verified with Gillian RN. Patient resting wound vac intact to 125mmhg. Patient refused Lotrisone cream. Call light in reach, will monitor.
--- NOTE | 2019-05-25 03:27 | NUR ---
SKILL NURSING NOTE: Nursing Problem: [facility], wound care services, and IV ABT r/t right heel DFU s/p I&D and osteomyelitis in hopes to return home with . Cognitive/Behavioral: Pt is A/Ox4. Pleasant and cooperative with cares. Pt is mildly [place]. Pain: Patient received x 1 doses of pain medication,with food relief. Respiratory Status: Lung sounds CTA. Pt sating upper 90's on RA with no cough or SOA noted. Skin: Pt rash on back has healed. Right heel DFU s/p I&Dpt has wound vac in place set to 125 mmHg continuous pressure with 10ml NS for 5 min soak every 4 hours. Coccyx intact. Bowel/Bladder Continence: Pt noted to have some stress incontinence, wears brief. Continent of bowel. LBM 05/24. ADL Functional Status: Pt needs stand by assist with gait belt and walker for transfers and ambulation. Utilizes walker appropriately with limited assist d/t wound vac. Pt toileted, requires x1 minimal assist. Required minimal assist to don new brief. Independent mobility while in bed. Pt takes medication pills whole, tolerated well.
[2019-05-25] MEDS: CEFEPIME HCL 1 GM in IV NORMAL SALINE 50ML 50 ML IV SCH ×3 (05:55→21:53)
[2019-05-25 06:15] VITALS: BP 165/69
--- NOTE | 2019-05-25 06:30 | NUR ---
Patient has rested quietly, no complaints verbalized. Antibiotic infusing at this time. PICC line had good blood return and flushes without difficulty. Call light in reach.
[2019-05-25] MEDS: metroNIDAZOLE 500 MG TABLET PO SCH ×2 (09:00→20:40)
[2019-05-25] MEDS: FUROSEMIDE 40 MG TABLET PO SCH (09:00)
[2019-05-25] MEDS: GABAPENTIN 300 MG CAPSULE. PO SCH ×3 (09:00→20:40)
[2019-05-25] MEDS: MULTIVITAMIN with MINERAL TABLET. PO SCH (09:00)
[2019-05-25] MEDS: ALLOPURINOL 300 MG TABLET. PO SCH (09:00)
[2019-05-25] MEDS: GLIMEPIRIDE 2 MG TABLET PO SCH ×2 (09:00→17:12)
[2019-05-25] MEDS: ASCORBIC ACID 500 MG TABLET PO SCH (09:00)
[2019-05-25] MEDS: CLOTRIMAZOLE/BETAMETH 1%-0.05% TOPICAL CREAM 15GM TUBE. TP SCH ×2 (09:01→20:41)
[2019-05-25] MEDS: VERAPAMIL SR 120 MG TABLET.ER. PO SCH (09:01)
[2019-05-25] MEDS: METOPROLOL TART IMMED RELEASE 50 MG TABLET PO SCH ×2 (09:01→20:41)
[2019-05-25] MEDS: LACTOBACILLUS RHAMNOSUS GG 1 CAPSULE. PO SCH ×2 (09:01→17:12)
[2019-05-25] MEDS: INSULIN LISPRO 300 UNITS/3 ML VIAL. SQ SCH ×3 (09:08→17:20)
[2019-05-25] MEDS: ASPIRIN 81 MG TAB.CHEW PO SCH (09:09)
[2019-05-25] MEDS: CALCIUM CARB/VIT D3 500/200 TABLET PO SCH ×2 (09:09→17:13)
--- NOTE | 2019-05-25 17:44 | NUR ---
SKILL NURSING NOTE: Nursing Problem: Pt admitted [facility] for PT/OT strengthening, wound care services, and IV ABT r/t right heel DFU s/p I&D and osteomyelitis in hopes to return home with . Cognitive/Behavioral: Pt is A/Ox4. Pleasant and cooperative with cares. Pt is mildly [place]. Pain: none Respiratory Status: Lung sounds CTA. Pt sating upper 90's on RA with no cough or SOA noted with amb/rest/laying flat. Skin: Pt rash on back has healed. Right heel DFU s/p I&Dpt has wound vac in place set to 125 mmHg continuous pressure with 10ml NS for 5 min soak every 4 hours. Bowel/Bladder Continence: Pt noted to have some stress incontinence, wears brief. Continent of bowel. LBM 05/25 ADL Functional Status: Pt needs stand by assist with gait belt and walker for transfers and ambulation. Utilizes walker appropriately with limited assist d/t wound vac. Pt toileting requires x1 minimal assist. Required minimal assist to don new brief. Independent mobility while in bed. Pt takes medication pills whole, tolerated well. turns self in bed indep, feeds self indep, needed HOME LIGHTING ADVISER to wash back and lower extremities in the shower today, dresses upper body indep and needs assist getting clothing for lower extremities over the dressing and wound vac
[2019-05-25 17:51] VITALS: BP 138/79
[2019-05-25] MEDS: MIRTAZAPINE 30 MG TABLET PO SCH (20:40)
[2019-05-25] MEDS: INSULIN GLARGINE SYRINGE. SQ SCH (20:47)
--- NOTE | 2019-05-26 04:32 | NUR ---
SKILL NURSING NOTE: Nursing Problem: Pt admitted to [facility] for PT/OT strengthening, wound care services, and IV ABT r/t right heel DFU s/p I&D and osteomyelitis in hopes to return home with . Cognitive/Behavioral: Pt is A/Ox4. Pleasant and cooperative with cares. Pt is mildly [place]. Pain: none Respiratory Status: Lung sounds CTA. Pt sating upper 90's on RA with no cough or SOA noted with amb/rest/laying flat. Skin: Pt rash on back has healed. Right heel DFU s/p I&Dpt has wound vac in place set to 125 mmHg continuous pressure with 10ml NS for 5 min soak every 4 hours. Bowel/Bladder Continence: Pt noted to have some stress incontinence, wears brief. Continent of bowel. LBM 05/25 ADL Functional Status: Pt needs stand by assist with gait belt and walker for transfers and ambulation. Utilizes walker appropriately with limited assist d/t wound vac. Pt toileting requires x1 minimal assist. Required minimal assist to don new brief. Independent mobility while in bed. Pt takes medication pills whole, tolerated well. turns self in bed independently, feeds self independently, needed CABLE TOWER OPERATOR to wash back and lower extremities in the shower today, dresses upper body independently and needs assist getting clothing for lower extremities over the dressing and wound vac
[2019-05-26 05:26] VITALS: BP 164/69
[2019-05-26] MEDS: CEFEPIME HCL 1 GM in IV NORMAL SALINE 50ML 50 ML IV SCH ×3 (05:28→21:07)
[2019-05-26] MEDS: GLIMEPIRIDE 2 MG TABLET PO SCH ×2 (08:23→16:51)
[2019-05-26] MEDS: METOPROLOL TART IMMED RELEASE 50 MG TABLET PO SCH ×2 (08:23→20:33)
[2019-05-26] MEDS: ASPIRIN 81 MG TAB.CHEW PO SCH (08:23)
[2019-05-26] MEDS: ASCORBIC ACID 500 MG TABLET PO SCH (08:23)
[2019-05-26] MEDS: MULTIVITAMIN with MINERAL TABLET. PO SCH (08:23)
[2019-05-26] MEDS: GABAPENTIN 300 MG CAPSULE. PO SCH ×3 (08:23→20:32)
[2019-05-26] MEDS: metroNIDAZOLE 500 MG TABLET PO SCH ×2 (08:23→20:32)
[2019-05-26] MEDS: FUROSEMIDE 40 MG TABLET PO SCH (08:24)
[2019-05-26] MEDS: LACTOBACILLUS RHAMNOSUS GG 1 CAPSULE. PO SCH ×2 (08:24→16:51)
[2019-05-26] MEDS: CALCIUM CARB/VIT D3 500/200 TABLET PO SCH ×2 (08:24→16:51)
[2019-05-26] MEDS: VERAPAMIL SR 120 MG TABLET.ER. PO SCH (08:24)
[2019-05-26] MEDS: ALLOPURINOL 300 MG TABLET. PO SCH (08:24)
[2019-05-26] MEDS: CLOTRIMAZOLE/BETAMETH 1%-0.05% TOPICAL CREAM 15GM TUBE. TP SCH ×2 (08:24→20:34)
[2019-05-26] MEDS: INSULIN LISPRO 300 UNITS/3 ML VIAL. SQ SCH ×3 (08:30→16:56)
--- NOTE | 2019-05-26 09:00 | NUR ---
At 0745 patient was assisted to floor by INTERNATIONAL PROJECT MANAGER in bathroom after patients knee buckled as patient was ambulating with INTERNATIONAL PROJECT MANAGER. Fall socks, gait belt and walker in use. Pt did fall against INTERNATIONAL PROJECT MANAGER then was assisted to floor. Both patient and INTERNATIONAL PROJECT MANAGER deny injury. It was discussed with patient that 2 people with assist patient with mobility and wheelchair may be used for long distances. Pt verbalized understanding. Nursing Formal Service Waiter JEANNINE Gallegos notified as well as DR Pardo.
[2019-05-26 17:49] VITALS: BP 128/71
[2019-05-26] MEDS: MIRTAZAPINE 30 MG TABLET PO SCH (20:32)
[2019-05-26] MEDS: INSULIN GLARGINE SYRINGE. SQ SCH (20:34)
--- NOTE | 2019-05-26 23:41 | NUR ---
SKILL NURSING NOTE: Nursing Problem: [facility]/OT [facility], wound care services, and IV ABT r/t right heel DFU s/p I&D and osteomyelitis in hopes to return home with . Cognitive/Behavioral: Pt is A/Ox4. Pleasant and cooperative with cares. Pt is mildly [place]. Pain: none Respiratory Status: Lung sounds CTA. Pt sating upper 90's on RA with no cough or SOA noted with amb/rest/laying flat. Skin: Pt rash on back has healed. Right heel DFU s/p I&Dpt has wound vac in place set to 125 mmHg Bowel/Bladder Continence: Pt noted to have some stress incontinence, wears brief. Continent of bowel. LBM 05/26 ADL Functional Status: Pt needs stand by assist with gait belt and walker for transfers and ambulation. Utilizes walker appropriately with limited assist d/t wound vac. Pt toileting requires x1 minimal assist. Required minimal assist to don new brief. Independent mobility while in bed. Pt takes medication pills whole, tolerated well. turns self in bed independently, feeds self independently, needed ASPARAGUS BUNCHER to wash back and lower extremities in the shower today, dresses upper body independently and needs assist getting clothing for lower extremities over the dressing and wound vac
[2019-05-27] MEDS: CEFEPIME HCL 1 GM in IV NORMAL SALINE 50ML 50 ML IV SCH ×3 (05:10→21:56)
[2019-05-27 05:16] VITALS: BP 123/71
[2019-05-27] MEDS: LACTOBACILLUS RHAMNOSUS GG 1 CAPSULE. PO SCH ×2 (08:24→17:03)
[2019-05-27] MEDS: GABAPENTIN 300 MG CAPSULE. PO SCH ×3 (08:24→20:31)
[2019-05-27] MEDS: MULTIVITAMIN with MINERAL TABLET. PO SCH (08:25)
[2019-05-27] MEDS: GLIMEPIRIDE 2 MG TABLET PO SCH ×2 (08:25→17:03)
[2019-05-27] MEDS: ALLOPURINOL 300 MG TABLET. PO SCH (08:25)
[2019-05-27] MEDS: metroNIDAZOLE 500 MG TABLET PO SCH ×2 (08:25→20:31)
[2019-05-27] MEDS: ASCORBIC ACID 500 MG TABLET PO SCH (08:26)
[2019-05-27] MEDS: FUROSEMIDE 40 MG TABLET PO SCH (08:26)
[2019-05-27] MEDS: ASPIRIN 81 MG TAB.CHEW PO SCH (08:26)
[2019-05-27] MEDS: CALCIUM CARB/VIT D3 500/200 TABLET PO SCH ×2 (08:26→17:03)
[2019-05-27] MEDS: METOPROLOL TART IMMED RELEASE 50 MG TABLET PO SCH ×2 (08:26→20:31)
[2019-05-27] MEDS: VERAPAMIL SR 120 MG TABLET.ER. PO SCH (08:27)
[2019-05-27] MEDS: CLOTRIMAZOLE/BETAMETH 1%-0.05% TOPICAL CREAM 15GM TUBE. TP SCH ×2 (08:27→20:51)
[2019-05-27] MEDS: INSULIN LISPRO 300 UNITS/3 ML VIAL. SQ SCH ×3 (08:35→17:07)
--- NOTE | 2019-05-27 14:59 | NUR ---
Swing Bed Nursing Note Nursing Problem: Wound to R heel, Osteomyelitis, PT/OT consultation Cognitive/Behavioral: Pt is alert and oriented x 4. Pt is pleasant and is oriented and aware of limitations and body functions. Pain: Pt has not complained of any pain thus far today. Respiratory Status:Room air Skin: Wound Vac to R heel Bowel/Bladder Continence: Pt has had 1 BM, continent of bowel and bladder. ADL Functional Status: Pt ambulates with walker, non-skid socks and shoes applied. Pt had shower and linen change today, pt receiving Cefepime via iv at 100 mL/hr. Pt has participated with PT/OT today with cooperation. Pt is aware of own abilities and disabilities. Checked blood sugar and administered insulin as ordered by physician.Will continue to monitor and assess throughout shift.
--- NOTE | 2019-05-27 17:30 | HP ---
ADMIT DATE: 05/21/2019 HISTORY OF PRESENT ILLNESS: The patient is an 89-year-old female patient who has severe peripheral vascular disease, diabetic foot disease together with diabetic peripheral neuropathy. There was a concern about osteomyelitis and she was seen in consultation by the wound care, Infectious Disease and was transferred to swing [facility] with IV antibiotic. However, her wound has worsened since discharge and therefore, she was transferred back to [facility] where she was evaluated again by the Infectious Disease specialist as well as vascular surgeon. She was seen in consultation. She underwent a right heel and foot debridement. She was also seen by the Infectious Disease specialist and was continued on IV antibiotic in the form of daptomycin and meropenem. She was seen also by the wound care team and was started on wound vacuum assisted closure device and she was continued with IV antibiotic and started on wound VAC and once stabilized, a decision was made to transfer her back to swing bed of [facility] to continue with IV antibiotic. Continue with wound VAC. Continue with pain management as well as to monitor her blood sugar and adjust insulin as needed. PAST MEDICAL HISTORY: Significant for type 2 diabetes, hypertension, hyperlipidemia, generalized osteoarthritis, severe peripheral neuropathy, severe peripheral vascular disease. She has also had a history of right ankle fracture, status post open reduction and internal fixation. PAST SURGICAL HISTORY: Significant for right big toe amputation. She also has bilateral shoulder rotator cuff surgery, bilateral total knee arthroplasty. She also has appendectomy and partial hysterectomy. ALLERGIES: SHE IS ALLERGIC TO PENICILLIN. FAMILY HISTORY: Noncontributory. SOCIAL HISTORY: She is and lives with her . She does not smoke, drink alcohol or use any recreational drugs. REVIEW OF SYSTEMS: As per history of present illness. MEDICATIONS: She is currently on following medications: She is on metoprolol tartrate 50 mg twice a day, verapamil 240 mg once a day, aspirin 81 mg once a day, oxycodone/APAP 5/325 one tablet every 4 hours, gabapentin 300 mg 3 times a day, mirtazapine 30 mg at bedtime, calcium carbonate with vitamin D3 one tablet twice a day, furosemide 40 mg daily, lactobacillus rhamnosus 1 capsule twice a day. She is on NPH 40 units at bedtime, glimepiride 4 mg twice a day, clotrimazole, betamethasone twice a day, multivitamin 1 tablet once a day, allopurinol 300 mg once a day, alendronate sodium 70 mg in 75 mL solution every Monday for osteoporosis. PHYSICAL EXAMINATION: GENERAL: When I examined her today, she looked well and was clearly in no apparent respiratory distress, pale, but no jaundice, cyanosis or thyromegaly. No jugular venous distention. No lower limb edema. VITAL SIGNS: Her heart rate was 68, blood pressure was 123/71, temperature was 98.1, respiratory rate was 16, and oxygen saturation was 94%. HEAD, EYES, EARS, NOSE AND THROAT: Showed normocephalic, atraumatic. NECK: Supple. HEART: Showed normal first and second heart sounds with no gallop or murmur. CHEST: Clear to auscultation. No crepitation or rhonchi. ABDOMEN: Distended, soft, nontender. NEUROLOGIC: She is awake, alert, responding appropriately. All cranial nerves intact. EXTREMITIES: She moves extremities without difficulty. She ambulates with a walker. LABORATORY DATA: On arrival showed a white cell count 9500, hemoglobin 11.5, hematocrit 35, MCV 94 and platelet count 449,000 with normal manual differential. Her chemistry showed her serum sodium was 142, potassium 3.5, chloride 102, bicarbonate 32, anion gap of 8, BUN 74, creatinine 1.5, estimated GFR was 53 mL per minute. Her glucose was 74, calcium was 9.5. Total bilirubin, AST, ALT, alkaline phosphatase were normal. Total protein was 6.8, albumin was 2.8. SUMMARY: This is an 89-year-old female patient who basically underwent a sharp excisional debridement of the right heel and right heel malformed ulcer with high pressure pulse lavage, antibiotic impregnated fluid for the wound area of 7.2 x 0.5 cm under general anesthesia. She is here to continue with IV antibiotic. She is here to continue with IV cefepime 1 gram IV q.8 hourly, Flagyl 500 mg twice a day. Continue to monitor her blood sugar and adjust insulin as needed. Continue with pain management, wound VAC and to start the process of physical and occupational therapy. FADI CHANDLER MD DR: ANN-MARIE/otoniel JOB#: [id number] / [id number]
[2019-05-27 20:08] VITALS: BP 159/75
[2019-05-27] MEDS: MIRTAZAPINE 30 MG TABLET PO SCH (20:31)
[2019-05-27] MEDS: INSULIN GLARGINE SYRINGE. SQ SCH (20:35)
--- NOTE | 2019-05-27 21:02 | NUR ---
Swing Bed Nursing Note Nursing Problem: Wound to RT heel, s/p debridement with wound Vac applied; osteomyelitis, PT/OT consultation. Cognitive/Behavioral: PT is alert and oriented x4. PT is pleasant, cooperative and is oriented and aware of limitations and body functions. Pain: PT complains of no pain at this time. Respiratory Status: CTA, room air. Skin: Wound Vac to RT heel. Bowel/Bladder Continence: PT has had a BM today, continent of bowel and bladder. ADL Functional Status: PT ambulates with a walker; non-skid socks and specialty shoes applied. PT had shower and linen change today in am. PT is aware of own abilities and limitations. Checked blood sugar and administered insulin as ordered by physician; will continue to monitor. NOTE: Spoke with PT about the possibility of going home in time for Thanksgiving. PT was excited to go home. Family has planned to either bring food to PT and or they will go to family's house for the holiday celebrations. Discussed with the PT about her therapy possibly being transferred to OPT services, i.e. Home Health and visits to Wound Therapy. Also discussed the possibility of po antibiotic medications. Discussed with the PT that she will make a plan with the physician prior to discharge on all of the above before she is sent home. PT is agreeable at this time to go home if applicable.
[2019-05-28 05:54] LABS: HEMATOCRIT 34.8 % (36.0-47.0); HEMOGLOBIN 11.2 g/dL (12.0-15.5); RED BLOOD COUNT 3.69 x10^6/uL (3.50-5.40); RED CELL DISTRIBUTION WIDTH 16.6 % (11.5-14.5)
[2019-05-28] MEDS: CEFEPIME HCL 1 GM in IV NORMAL SALINE 50ML 50 ML IV SCH ×3 (06:06→21:35)
[2019-05-28 06:10] LABS: ALBUMIN 2.7 g/dL (3.4-5.0); ALBUMIN/GLOBULIN RATIO 0.7 (1.0-1.7); C REACTIVE PROTEIN 1.8 mg/L (0-3.3); CALCIUM 8.9 mg/dL (8.5-10.1); CREATININE 1.1 mg/dL (0.6-1.0); GFR 46.9; POTASSIUM 4.2 mmol/L (3.5-5.1); TOTAL BILIRUBIN 0.3 mg/dL (0.2-1.0); TOTAL PROTEIN 6.5 g/dL (6.4-8.2)
[2019-05-28 06:13] VITALS: BP 126/71
[2019-05-28] MEDS: ASPIRIN 81 MG TAB.CHEW PO SCH (08:21)
[2019-05-28] MEDS: LACTOBACILLUS RHAMNOSUS GG 1 CAPSULE. PO SCH ×2 (08:21→17:06)
[2019-05-28] MEDS: GLIMEPIRIDE 2 MG TABLET PO SCH ×2 (08:21→17:07)
[2019-05-28] MEDS: MULTIVITAMIN with MINERAL TABLET. PO SCH (08:21)
[2019-05-28] MEDS: CALCIUM CARB/VIT D3 500/200 TABLET PO SCH ×2 (08:21→17:06)
[2019-05-28] MEDS: metroNIDAZOLE 500 MG TABLET PO SCH ×2 (08:21→20:45)
[2019-05-28] MEDS: METOPROLOL TART IMMED RELEASE 50 MG TABLET PO SCH ×2 (08:21→20:45)
[2019-05-28] MEDS: ASCORBIC ACID 500 MG TABLET PO SCH (08:22)
[2019-05-28] MEDS: GABAPENTIN 300 MG CAPSULE. PO SCH ×3 (08:22→20:45)
[2019-05-28] MEDS: ALLOPURINOL 300 MG TABLET. PO SCH (08:22)
[2019-05-28] MEDS: FUROSEMIDE 40 MG TABLET PO SCH (08:22)
[2019-05-28] MEDS: VERAPAMIL SR 120 MG TABLET.ER. PO SCH (08:22)
[2019-05-28] MEDS: CLOTRIMAZOLE/BETAMETH 1%-0.05% TOPICAL CREAM 15GM TUBE. TP SCH ×2 (08:23→21:00)
[2019-05-28] MEDS: INSULIN LISPRO 300 UNITS/3 ML VIAL. SQ SCH ×3 (08:29→17:12)
--- NOTE | 2019-05-28 09:13 | NUR ---
NURSING NOTES: THIS NURSE SPOKE TO DONNIE AT [facility] TO MAKE FOLLOW UP APPOINTMENT FOR PT. APPOINTMENT IS SET FOR 06/11/19 AT 1515. PATIENT NOTIFIED AND VOICED UNDERSTANDING.
--- NOTE | 2019-05-28 16:00 | NUR ---
Swing Bed Nursing Note Nursing Problem: Wound to RT heel, s/p debridement with wound Vac applied; osteomyelitis, PT/OT consultation. Cognitive/Behavioral: PT is alert and oriented x4. PT is pleasant, cooperative and is oriented and aware of limitations and body functions. Pain: PT complains of no pain thus far this shift. Respiratory Status: CTA, room air. Skin: Wound Vac to RT heel. Bowel/Bladder Continence: Continent of bowel and bladder. ADL Functional Status: PT ambulates with a walker; tennis shoe and specialty shoes applied. Pt is supervision, set up help for bed mobility, transfers, walking, dressing, eating, toileting, personal hygiene, and bathing. PT is aware of own abilities and limitations. Checked blood sugar and administered insulin as ordered by physician; will continue to monitor. NOTE: Spoke with PT about the possibility of going home in time for Thanksgiving. PT was excited to go home. Family has planned to either bring food to PT and or they will go to family's house for the holiday celebrations. Discussed with the PT about her therapy possibly being transferred to OPT services, i.e. Home Health and visits to Wound Therapy or going to outpatient elsewhere. Also discussed the possibility of po antibiotic medications. Discussed with the PT that she will make a plan with the physician prior to discharge on all of the above before she is sent home. PT is agreeable at this time to go home if applicable. Case management made aware of patient hoping to discharge before Thanksgiving.
--- NOTE | 2019-05-28 17:30 | NUR ---
Wound Care Wound care follow up for right foot wound dressing change. Wound vac removed, dressing removed, wound cleansed, measured and pictured. Vac placed on hold for holiday weekend, wound dressed with major, Hydrofera blue and foam dressing, recommend to change every 2-3 days. No other wounds noted on full skin inspection. If pt discharges she will follow up in [facility] next week, otherwise we will return Monday to reapply vac. [facility] will shredder picker dirty vac Monday or Monday at nurse station if discharged.
[2019-05-28 19:30] VITALS: BP 114/60
[2019-05-28] MEDS: MIRTAZAPINE 30 MG TABLET PO SCH (20:45)
[2019-05-28] MEDS: INSULIN GLARGINE SYRINGE. SQ SCH (20:52)
--- NOTE | 2019-05-28 21:11 | NUR ---
Swing Bed Nursing Note Nursing Problem: Wound to RT heel, s/p debridement wound vac removed 05/28, dressing applied; osteomyelitis, PT/OT consultation. Cognitive/Behavioral: PT is alert and oriented x4. PT is pleasant, cooperative and is oriented and aware of limitations and body functions. Pain: PT complains of no pain thus far this shift. Respiratory Status: CTA, RA. Skin: Dressing to RT heel. Bowel/Bladder Continence: Continent of bowel and bladder. ADL Functional Status: PT ambulates with a walker; tennis shoe (LT) and specialty shoe (RT) applied. PT is supervision, set up help for bed mobility, transfers, walking, dressing, eating, toileting, personal hygiene and bathing. PT is aware of own abilities and limitations. Checked blood sugar and administered insulin as ordered by physician; will continue to monitor.
[2019-05-29 05:43] VITALS: BP 147/77
[2019-05-29] MEDS: CEFEPIME HCL 1 GM in IV NORMAL SALINE 50ML 50 ML IV SCH ×3 (06:34→20:59)
[2019-05-29] MEDS: ALENDRONATE SODIUM 35 MG TABLET PO SCH (07:09)
[2019-05-29] MEDS: GABAPENTIN 300 MG CAPSULE. PO SCH ×3 (08:28→20:58)
[2019-05-29] MEDS: METOPROLOL TART IMMED RELEASE 50 MG TABLET PO SCH ×2 (08:28→20:58)
[2019-05-29] MEDS: LACTOBACILLUS RHAMNOSUS GG 1 CAPSULE. PO SCH ×2 (08:28→17:07)
[2019-05-29] MEDS: metroNIDAZOLE 500 MG TABLET PO SCH ×2 (08:29→20:58)
[2019-05-29] MEDS: MULTIVITAMIN with MINERAL TABLET. PO SCH (08:29)
[2019-05-29] MEDS: ASPIRIN 81 MG TAB.CHEW PO SCH (08:29)
[2019-05-29] MEDS: CALCIUM CARB/VIT D3 500/200 TABLET PO SCH ×2 (08:29→17:07)
[2019-05-29] MEDS: ASCORBIC ACID 500 MG TABLET PO SCH (08:29)
[2019-05-29] MEDS: ALLOPURINOL 300 MG TABLET. PO SCH (08:29)
[2019-05-29] MEDS: GLIMEPIRIDE 2 MG TABLET PO SCH ×2 (08:29→17:07)
[2019-05-29] MEDS: FUROSEMIDE 40 MG TABLET PO SCH (08:29)
[2019-05-29] MEDS: VERAPAMIL SR 120 MG TABLET.ER. PO SCH (08:30)
[2019-05-29] MEDS: CLOTRIMAZOLE/BETAMETH 1%-0.05% TOPICAL CREAM 15GM TUBE. TP SCH ×4 (08:30→21:51)
[2019-05-29] MEDS: INSULIN LISPRO 300 UNITS/3 ML VIAL. SQ SCH ×3 (08:38→17:23)
--- NOTE | 2019-05-29 13:00 | NUR ---
DURATION: 60 CENSUS: 1 ACTIVITY: COG STIM/SOCIALIZATION SESSION TITLE: HAZEL Junko Tada PARTICIPATION: NONE/ NI: PT was eating lunch.
--- NOTE | 2019-05-29 14:00 | NUR ---
DURATION: 60 CENSUS: 2 ACTIVITY: COG STIM/SOCIALIZATION SESSION TITLE: HAZEL MIMS [employer] PARTICIPATION: NONE/ NI: PT was with guests.
[2019-05-29 18:59] VITALS: BP 150/77
[2019-05-29] MEDS: MIRTAZAPINE 30 MG TABLET PO SCH (20:58)
[2019-05-29] MEDS: INSULIN GLARGINE SYRINGE. SQ SCH (21:12)
--- NOTE | 2019-05-30 04:21 | NUR ---
Swing Bed Nursing Note: Nursing Problem: Wound to RT heel (positive for MRSA)(Contact Isolation), s/p debridement wound vac removed 05/28, dressing applied; osteomyelitis, PT/OT consultation. Cognitive/Behavioral: PT is alert and oriented x4. PT is pleasant, cooperative and is oriented and aware of limitations and body functions. Pain: Pt has no c/o pain at this time Respiratory Status: CTA, RA. Skin: Dressing to RT heel. Bowel/Bladder Continence: Continent of bowel and bladder. ADL Functional Status: PT ambulates with a walker (knees can buckle at times); tennis shoe (LT) and specialty shoe (RT) applied. PT is supervision, set up help for bed mobility, transfers, walking, dressing, eating, toileting, personal hygiene and bathing. PT is aware of own abilities and limitations. Checked blood sugar and administered insulin as ordered by physician; will continue to monitor.
[2019-05-30] MEDS: CEFEPIME HCL 1 GM in IV NORMAL SALINE 50ML 50 ML IV SCH ×3 (05:29→20:30)
[2019-05-30 05:33] VITALS: BP 134/66
[2019-05-30] MEDS: LACTOBACILLUS RHAMNOSUS GG 1 CAPSULE. PO SCH ×2 (08:00→16:31)
[2019-05-30] MEDS: GABAPENTIN 300 MG CAPSULE. PO SCH ×3 (08:46→20:30)
[2019-05-30] MEDS: FUROSEMIDE 40 MG TABLET PO SCH (08:46)
[2019-05-30] MEDS: ALLOPURINOL 300 MG TABLET. PO SCH (08:46)
[2019-05-30] MEDS: MULTIVITAMIN with MINERAL TABLET. PO SCH (08:46)
[2019-05-30] MEDS: CALCIUM CARB/VIT D3 500/200 TABLET PO SCH ×2 (08:47→16:31)
[2019-05-30] MEDS: METOPROLOL TART IMMED RELEASE 50 MG TABLET PO SCH ×2 (08:47→20:30)
[2019-05-30] MEDS: ASPIRIN 81 MG TAB.CHEW PO SCH (08:47)
[2019-05-30] MEDS: metroNIDAZOLE 500 MG TABLET PO SCH ×2 (08:47→20:31)
[2019-05-30] MEDS: GLIMEPIRIDE 2 MG TABLET PO SCH ×2 (08:47→16:31)
[2019-05-30] MEDS: INSULIN LISPRO 300 UNITS/3 ML VIAL. SQ SCH ×3 (08:55→17:43)
[2019-05-30] MEDS: ASCORBIC ACID 500 MG TABLET PO SCH (08:58)
[2019-05-30] MEDS: VERAPAMIL SR 120 MG TABLET.ER. PO SCH (08:58)
--- NOTE | 2019-05-30 11:31 | NUR ---
Pt left unit at 1100 to eat lunch with , will return at 1500 today. Pt left in street clothes along with personal walker, and purse.
--- NOTE | 2019-05-30 14:55 | NUR ---
Pt arrived back on unit at 1430. Pt is now receiving Cefepime via IV. Will continue to monitor and assess as indicated.
--- NOTE | 2019-05-30 18:00 | NUR ---
Swing Bed Nursing Note Nursing Problem: DFU Right Heel, Osteomyelitis Cognitive/Behavioral: Alert and Oriented x 4. Pain: Pt has denied any pain today Respiratory Status: Room Air Skin: Wound to Right Heel Bowel/Bladder Continence: Continent of Bowel and Bladder ADL Functional Status: pt ambulates with walker, stand by assist. Pt dresses self with minimal assistance.
[2019-05-30] MEDS: MIRTAZAPINE 30 MG TABLET PO SCH (20:31)
[2019-05-30] MEDS: INSULIN GLARGINE SYRINGE. SQ SCH (20:49)
--- NOTE | 2019-05-31 03:22 | NUR ---
Swing Bed Nursing Note Nursing Problem: DFU Right Heel, Osteomyelitis Cognitive/Behavioral: Alert and Oriented x 4. Pain: Pt has denied any pain this shift Respiratory Status: Room Air Skin: Wound to Right Heel Bowel/Bladder Continence: Continent of Bowel and Bladder ADL Functional Status: pt ambulates with walker, stand by assist. Pt dresses self with minimal assistance.
--- NOTE | 2019-05-31 03:23 | NUR ---
Dressing changed on right heel 05/30 @2200. Pt assisted to the bathroom x2 this shift.
[2019-05-31] MEDS: CEFEPIME HCL 1 GM in IV NORMAL SALINE 50ML 50 ML IV SCH ×3 (05:45→22:11)
[2019-05-31 05:50] VITALS: BP 144/69
[2019-05-31] MEDS: CLOTRIMAZOLE/BETAMETH 1%-0.05% TOPICAL CREAM 15GM TUBE. TP SCH ×2 (07:57→20:42)
[2019-05-31] MEDS: ASCORBIC ACID 500 MG TABLET PO SCH (07:58)
[2019-05-31] MEDS: GABAPENTIN 300 MG CAPSULE. PO SCH ×3 (07:58→20:25)
[2019-05-31] MEDS: CALCIUM CARB/VIT D3 500/200 TABLET PO SCH ×2 (07:58→17:34)
[2019-05-31] MEDS: MULTIVITAMIN with MINERAL TABLET. PO SCH (07:58)
[2019-05-31] MEDS: FUROSEMIDE 40 MG TABLET PO SCH (07:58)
[2019-05-31] MEDS: GLIMEPIRIDE 2 MG TABLET PO SCH ×2 (07:58→17:35)
[2019-05-31] MEDS: metroNIDAZOLE 500 MG TABLET PO SCH ×2 (07:58→20:24)
[2019-05-31] MEDS: LACTOBACILLUS RHAMNOSUS GG 1 CAPSULE. PO SCH ×3 (07:58→20:24)
[2019-05-31] MEDS: ASPIRIN 81 MG TAB.CHEW PO SCH (07:58)
[2019-05-31] MEDS: ALLOPURINOL 300 MG TABLET. PO SCH (07:59)
[2019-05-31] MEDS: VERAPAMIL SR 120 MG TABLET.ER. PO SCH (07:59)
[2019-05-31] MEDS: METOPROLOL TART IMMED RELEASE 50 MG TABLET PO SCH ×2 (07:59→20:24)
[2019-05-31] MEDS: INSULIN LISPRO 300 UNITS/3 ML VIAL. SQ SCH ×3 (08:06→17:39)
--- NOTE | 2019-05-31 18:04 | NUR ---
Swing Bed Nursing Note Nursing Problem: DFU Right Heel, Osteomyelitis Cognitive/Behavioral: Alert and Oriented x 4. Pain: Pt has denied any pain this shift Respiratory Status: Room Air. LCTA. No cough noted this shift. Skin: Wound to Right Heel, dressing changed 05/30. No drainage noted thus fair to dressing. Dressing is C/D/I. Bowel/Bladder Continence: Continent of Bowel and Bladder ADL Functional Status: Pt is independent with bathing, dressing, grooming, and eating. Pt is stand by/supervision for transfers and ambulation with wheeled walker.
[2019-05-31 18:44] VITALS: BP 151/79
[2019-05-31] MEDS: INSULIN GLARGINE SYRINGE. SQ SCH (20:12)
[2019-05-31] MEDS: MIRTAZAPINE 30 MG TABLET PO SCH (20:25)
[2019-06-01] MEDS: CEFEPIME HCL 1 GM in IV NORMAL SALINE 50ML 50 ML IV SCH ×3 (06:19→21:50)
[2019-06-01 06:23] VITALS: BP 122/67
--- NOTE | 2019-06-01 07:06 | NUR ---
Swing Bed Nursing Note Nursing Problem: DFU Right Heel, Osteomyelitis Cognitive/Behavioral: Alert and Oriented x 4. Pain: Pt has denied any pain this shift Respiratory Status: Room Air. LCTA. No cough noted this shift. Skin: Wound to Right Heel, dressing changed 05/30. Dressing is C/D/I. Bowel/Bladder Continence: Continent of Bowel and Bladder ADL Functional Status: Pt is independent with bathing, dressing, grooming, and eating. Pt is stand by/supervision for transfers and ambulation with wheeled walker.
[2019-06-01] MEDS: METOPROLOL TART IMMED RELEASE 50 MG TABLET PO SCH ×2 (08:21→21:19)
[2019-06-01] MEDS: ASCORBIC ACID 500 MG TABLET PO SCH (08:21)
[2019-06-01] MEDS: GABAPENTIN 300 MG CAPSULE. PO SCH ×3 (08:21→21:19)
[2019-06-01] MEDS: ALLOPURINOL 300 MG TABLET. PO SCH (08:22)
[2019-06-01] MEDS: metroNIDAZOLE 500 MG TABLET PO SCH ×2 (08:22→21:18)
[2019-06-01] MEDS: CALCIUM CARB/VIT D3 500/200 TABLET PO SCH ×2 (08:23→17:04)
[2019-06-01] MEDS: FUROSEMIDE 40 MG TABLET PO SCH (08:23)
[2019-06-01] MEDS: GLIMEPIRIDE 2 MG TABLET PO SCH ×2 (08:23→17:04)
[2019-06-01] MEDS: MULTIVITAMIN with MINERAL TABLET. PO SCH (08:23)
[2019-06-01] MEDS: ASPIRIN 81 MG TAB.CHEW PO SCH (08:23)
[2019-06-01] MEDS: CLOTRIMAZOLE/BETAMETH 1%-0.05% TOPICAL CREAM 15GM TUBE. TP SCH ×2 (08:24→21:00)
[2019-06-01] MEDS: VERAPAMIL SR 120 MG TABLET.ER. PO SCH (08:24)
[2019-06-01] MEDS: INSULIN LISPRO 300 UNITS/3 ML VIAL. SQ SCH ×3 (10:42→18:15)
[2019-06-01] MEDS: LACTOBACILLUS RHAMNOSUS GG 1 CAPSULE. PO SCH (17:05)
[2019-06-01 18:18] VITALS: BP 139/68
--- NOTE | 2019-06-01 18:25 | NUR ---
Dressing changed on right lower extremity. Pics taken.
[2019-06-01] MEDS: MIRTAZAPINE 30 MG TABLET PO SCH (21:18)
[2019-06-01] MEDS: INSULIN GLARGINE SYRINGE. SQ SCH (21:24)
[2019-06-02 05:21] VITALS: BP 132/73
[2019-06-02] MEDS: CEFEPIME HCL 1 GM in IV NORMAL SALINE 50ML 50 ML IV SCH ×3 (05:52→21:02)
--- NOTE | 2019-06-02 06:29 | NUR ---
Pt stated her foot doesn't feel good but cannot specify where exactly or describe the pain. Pt refused pain medication. Slept on and off throughout the night. PICC line flushed and capped between infusions. Will continue to monitor.
[2019-06-02] MEDS: MULTIVITAMIN with MINERAL TABLET. PO SCH (08:59)
[2019-06-02] MEDS: FUROSEMIDE 40 MG TABLET PO SCH (08:59)
[2019-06-02] MEDS: LACTOBACILLUS RHAMNOSUS GG 1 CAPSULE. PO SCH ×2 (08:59→16:55)
[2019-06-02] MEDS: GLIMEPIRIDE 2 MG TABLET PO SCH ×2 (08:59→16:55)
[2019-06-02] MEDS: metroNIDAZOLE 500 MG TABLET PO SCH ×2 (08:59→20:20)
[2019-06-02] MEDS: ALLOPURINOL 300 MG TABLET. PO SCH (08:59)
[2019-06-02] MEDS: ASCORBIC ACID 500 MG TABLET PO SCH (08:59)
[2019-06-02] MEDS: GABAPENTIN 300 MG CAPSULE. PO SCH ×3 (08:59→20:20)
[2019-06-02] MEDS: ASPIRIN 81 MG TAB.CHEW PO SCH (08:59)
[2019-06-02] MEDS: METOPROLOL TART IMMED RELEASE 50 MG TABLET PO SCH ×2 (09:00→20:20)
[2019-06-02] MEDS: CLOTRIMAZOLE/BETAMETH 1%-0.05% TOPICAL CREAM 15GM TUBE. TP SCH ×2 (09:00→20:20)
[2019-06-02] MEDS: CALCIUM CARB/VIT D3 500/200 TABLET PO SCH ×2 (09:00→16:55)
[2019-06-02] MEDS: VERAPAMIL SR 120 MG TABLET.ER. PO SCH (09:01)
[2019-06-02] MEDS: INSULIN LISPRO 300 UNITS/3 ML VIAL. SQ SCH ×3 (10:03→17:06)
[2019-06-02 18:19] VITALS: BP 165/83
[2019-06-02] MEDS: INSULIN GLARGINE SYRINGE. SQ SCH (20:19)
[2019-06-02] MEDS: MIRTAZAPINE 30 MG TABLET PO SCH (20:20)
[2019-06-02] MEDS: NYSTATIN TOPICAL POWDER 15GM BOTTLE. TP SCH (21:00)
--- NOTE | 2019-06-03 00:19 | NUR ---
Swing Bed Nursing Note Nursing Problem: DFU Right Heel, Osteomyelitis Cognitive/Behavioral: Alert and Oriented x 4. Pain: Pt has denied any pain this shift Respiratory Status: Room Air Skin: Wound to Right Heel Bowel/Bladder Continence: Continent of Bowel and Bladder ADL Functional Status: pt ambulates with walker, stand by assist. Pt dresses self with minimal assistance. i helped pt with removing her shoes
[2019-06-03] MEDS: CEFEPIME HCL 1 GM in IV NORMAL SALINE 50ML 50 ML IV SCH ×3 (05:30→21:07)
[2019-06-03 06:02] VITALS: BP 117/67
[2019-06-03] MEDS: ALLOPURINOL 300 MG TABLET. PO SCH (08:40)
[2019-06-03] MEDS: metroNIDAZOLE 500 MG TABLET PO SCH ×2 (08:41→21:07)
[2019-06-03] MEDS: CALCIUM CARB/VIT D3 500/200 TABLET PO SCH ×2 (08:41→17:09)
[2019-06-03] MEDS: METOPROLOL TART IMMED RELEASE 50 MG TABLET PO SCH ×2 (08:41→21:07)
[2019-06-03] MEDS: GLIMEPIRIDE 2 MG TABLET PO SCH ×2 (08:41→17:09)
[2019-06-03] MEDS: GABAPENTIN 300 MG CAPSULE. PO SCH ×3 (08:41→21:07)
[2019-06-03] MEDS: ASPIRIN 81 MG TAB.CHEW PO SCH (08:41)
[2019-06-03] MEDS: LACTOBACILLUS RHAMNOSUS GG 1 CAPSULE. PO SCH ×2 (08:41→17:09)
[2019-06-03] MEDS: ASCORBIC ACID 500 MG TABLET PO SCH (08:41)
[2019-06-03] MEDS: VERAPAMIL SR 120 MG TABLET.ER. PO SCH (08:42)
[2019-06-03] MEDS: FUROSEMIDE 40 MG TABLET PO SCH (08:42)
[2019-06-03] MEDS: CLOTRIMAZOLE/BETAMETH 1%-0.05% TOPICAL CREAM 15GM TUBE. TP SCH ×2 (08:43→21:00)
[2019-06-03] MEDS: NYSTATIN TOPICAL POWDER 15GM BOTTLE. TP SCH ×2 (08:44→21:07)
[2019-06-03] MEDS: MULTIVITAMIN with MINERAL TABLET. PO SCH (09:00)
[2019-06-03] MEDS: INSULIN LISPRO 300 UNITS/3 ML VIAL. SQ SCH ×3 (09:04→17:10)
[2019-06-03 11:37] LABS: BASO # 0.1 x10^3/uL (0.0-0.2); BASO % 1 % (0-3); EOS # 0.7 x10^3/uL (0.0-0.7); EOS % 8 % (0-3); HEMATOCRIT 37.5 % (36.0-47.0); HEMOGLOBIN 11.9 g/dL (12.0-15.5); LYMPH # 1.6 x10^3/uL (1.0-4.8); LYMPH % 19 % (24-48); MEAN CORPUSCULAR HEMOGLOBIN 30 pg (25-35); MEAN CORPUSCULAR HGB CONC 32 g/dL (31-37); MEAN CORPUSCULAR VOLUME 96 fL (79-100); MONO # 0.8 x10^3/uL (0.0-1.1); MONO % 10 % (0-9); NEUT # 5.3 x10^3uL (1.8-7.7); NEUT % 63 % (31-73); PLATELET COUNT 267 x10^3/uL (140-400); RED BLOOD COUNT 3.93 x10^6/uL (3.50-5.40); RED CELL DISTRIBUTION WIDTH 16.5 % (11.5-14.5); WHITE BLOOD COUNT 8.4 x10^3/uL (4.0-11.0)
[2019-06-03 11:49] LABS: ALBUMIN/GLOBULIN RATIO 0.7 (1.0-1.7); CALCIUM 9.6 mg/dL (8.5-10.1); CREATININE 1.3 mg/dL (0.6-1.0); GFR 38.7; POTASSIUM 4.6 mmol/L (3.5-5.1); TOTAL BILIRUBIN 0.3 mg/dL (0.2-1.0); TOTAL PROTEIN 7.2 g/dL (6.4-8.2)
[2019-06-03 12:46] LABS: SEDIMENTATION RATE 46 (0-25)
[2019-06-03 13:19] LABS: % ATYL 1 % (0-0); % BASOS 1 % (0-3); % EOS 8 % (0-5); % LYMPHS 12 % (24-48); % MONOS 11 % (0-10); % SEGS 67 % (35-66)
[2019-06-03 13:20] LABS: PLT ESTIMATE ADEQUATE (ADEQUATE)
[2019-06-03 18:06] VITALS: BP 152/75
--- NOTE | 2019-06-03 18:15 | NUR ---
Swing Bed Nursing Note Nursing Problem:IV antibiotics and wound care secondary to I&D of a diabetic heel wound. Cognitive/Behavioral: Alert and oriented X's 4, pleasant and cooperative, slightly [place] Pain: No complaints of pain Respiratory Status: Room air, no cough, Lungs clear on assessment but patient develops SOA with exertion. Skin:Patient in Contact Isolation due to MRSA in wound. Wound on Rt Heel, orthotic shoe on Rt foot, wound care following. Rash on upper back has resolved. Bowel/Bladder Continence: Has episodes of incontinence of bowel and bladder but is able to void in toilet also with some success. ADL Functional Status: Patient is independent in her bed, getting out of chair, and off of bed. She is standby with ambulation in room and hallway. Independent with eating but needed assistance with opening drink containers. Patient was able to toilet independently except for getting pant leg over orthotic. Patient did lose balance leaning forward to pull up pants with staff assist needed to complete task and prevent fall. No visitors today. Patient was on bedside working on word puzzles majority of day.
[2019-06-03] MEDS: MIRTAZAPINE 30 MG TABLET PO SCH (21:07)
[2019-06-03] MEDS: INSULIN GLARGINE SYRINGE. SQ SCH (21:10)
--- NOTE | 2019-06-04 04:31 | NUR ---
Swing Bed Nursing Note: Nursing Problem: IV antibiotics and wound care secondary to I&D of a diabetic heel wound. Cognitive/Behavioral: Alert and oriented X's 4, pleasant and cooperative, [place] Pain: No complaints of pain Respiratory Status: Room air, no cough, Lungs clear on assessmentmut patient develops SOA with exertion. Skin:Patient in Contact Isolation due to MRSA in wound. Wound on Rt Heel, orthotic shoe on Rt foot, wound care following. Rash on upper back has resolved. Bowel/Bladder Continence: Has episodes of incontinence of bowel and bladder but is able to void in toilet also with some success. ADL Functional Status: Patient is independent in her bed, getting out of chair, and off of bed. She is standby with ambulation in room and hallway. Independent with eating but needed assistance with opening drink containers. Patient was able to toilet independently except for getting pant leg over orthotic. Patient did lose balance leaning forward to pull up pants with staff assist needed to complete task and prevent fall. No visitors today. Patient was on bedside working on word puzzles majority of day.
[2019-06-04 05:54] VITALS: BP 164/72
[2019-06-04] MEDS: CEFEPIME HCL 1 GM in IV NORMAL SALINE 50ML 50 ML IV SCH ×3 (06:02→21:00)
[2019-06-04] MEDS: GLIMEPIRIDE 2 MG TABLET PO SCH ×2 (07:26→16:25)
[2019-06-04] MEDS: METOPROLOL TART IMMED RELEASE 50 MG TABLET PO SCH ×2 (07:26→21:01)
[2019-06-04] MEDS: GABAPENTIN 300 MG CAPSULE. PO SCH ×3 (07:27→21:01)
[2019-06-04] MEDS: MIRTAZAPINE 30 MG TABLET PO SCH (07:27)
[2019-06-04] MEDS: LACTOBACILLUS RHAMNOSUS GG 1 CAPSULE. PO SCH ×2 (07:27→16:25)
[2019-06-04] MEDS: MULTIVITAMIN with MINERAL TABLET. PO SCH (07:27)
[2019-06-04] MEDS: ASCORBIC ACID 500 MG TABLET PO SCH (07:27)
[2019-06-04] MEDS: metroNIDAZOLE 500 MG TABLET PO SCH ×2 (07:27→21:02)
[2019-06-04] MEDS: ALLOPURINOL 300 MG TABLET. PO SCH (07:27)
[2019-06-04] MEDS: CALCIUM CARB/VIT D3 500/200 TABLET PO SCH ×2 (07:28→16:25)
[2019-06-04] MEDS: VERAPAMIL SR 120 MG TABLET.ER. PO SCH (07:28)
[2019-06-04] MEDS: FUROSEMIDE 40 MG TABLET PO SCH (07:28)
[2019-06-04] MEDS: ASPIRIN 81 MG TAB.CHEW PO SCH (07:28)
--- NOTE | 2019-06-04 07:29 | NUR ---
Wound Care Wound care follow up for right foot wound dressing change. Dressing removed, wound cleansed, and measured. Wound dressed with major, Hydrofera blue and foam dressing, recommend to change every 2-3 days. No other wounds noted on full skin inspection. If pt discharges she will follow up in [facility]. Wound vac taken by [facility] to be returned at [facility]. WC will continue to follow for possible changes
[2019-06-04] MEDS: NYSTATIN TOPICAL POWDER 15GM BOTTLE. TP SCH ×2 (07:33→21:00)
[2019-06-04] MEDS: CLOTRIMAZOLE/BETAMETH 1%-0.05% TOPICAL CREAM 15GM TUBE. TP SCH ×2 (07:33→21:00)
[2019-06-04] MEDS: INSULIN LISPRO 300 UNITS/3 ML VIAL. SQ SCH ×3 (08:04→17:14)
[2019-06-04 15:00] VITALS: BP 123/76
--- NOTE | 2019-06-04 17:41 | NUR ---
Patient is alert and oriented x 4, speech is clear, able to make wants and needs known, able to verbalize understanding of others. [place] in both ears. Patient is stand by assist with walker in transfers, Patient is continent of bowel and bladder, wears disposable briefs for dignity. Patient is cooperative with staff in all cares, no negative moods or behaviors observed. Patient is very pleasant. Patient is set up assist with meals, set up assist with dressing. Patient skin is in tact. Lungs are CTA, respirations are even and unlabored, no cough or SOA present. Patient is on room air. HRR auscultated, S1S2 noted. Abdomen is slightly obese, soft and non tender. Active bowel sounds in all 4 quadrants. Last BM 06/04/2019. Patient is currently resting in chair with call light and fresh fluids with in reach.
[2019-06-04] MEDS: INSULIN GLARGINE SYRINGE. SQ SCH (21:02)
--- NOTE | 2019-06-04 22:15 | NUR ---
Pt ambulated w/gait belt and walker to bathroom. Pt removed her clothes independently and put on her nightgown. Pt able to lift her legs into the bed with no assistance. pt independent w/ambulation, dressing, and nightly care.
--- NOTE | 2019-06-04 23:45 | NUR ---
Assumed care of patient at this time. Report received from JEANNINE Lloyd. Pt resting comfortably in bed, lowest position. Call light in reach.
[2019-06-05 05:22] VITALS: BP 145/74
[2019-06-05] MEDS: CEFEPIME HCL 1 GM in IV NORMAL SALINE 50ML 50 ML IV SCH ×3 (05:59→21:41)
[2019-06-05] MEDS: ALENDRONATE SODIUM 35 MG TABLET PO SCH (07:47)
[2019-06-05] MEDS: ALLOPURINOL 300 MG TABLET. PO SCH (07:48)
[2019-06-05] MEDS: FUROSEMIDE 40 MG TABLET PO SCH (07:48)
[2019-06-05] MEDS: MULTIVITAMIN with MINERAL TABLET. PO SCH (07:48)
[2019-06-05] MEDS: ASCORBIC ACID 500 MG TABLET PO SCH (07:48)
[2019-06-05] MEDS: metroNIDAZOLE 500 MG TABLET PO SCH ×2 (07:48→20:21)
[2019-06-05] MEDS: LACTOBACILLUS RHAMNOSUS GG 1 CAPSULE. PO SCH ×2 (07:48→17:09)
[2019-06-05] MEDS: GABAPENTIN 300 MG CAPSULE. PO SCH ×3 (07:48→20:21)
[2019-06-05] MEDS: ASPIRIN 81 MG TAB.CHEW PO SCH (07:48)
[2019-06-05] MEDS: CALCIUM CARB/VIT D3 500/200 TABLET PO SCH ×2 (07:48→17:09)
[2019-06-05] MEDS: GLIMEPIRIDE 2 MG TABLET PO SCH ×2 (07:49→17:09)
[2019-06-05] MEDS: METOPROLOL TART IMMED RELEASE 50 MG TABLET PO SCH ×2 (07:49→20:21)
[2019-06-05] MEDS: CLOTRIMAZOLE/BETAMETH 1%-0.05% TOPICAL CREAM 15GM TUBE. TP SCH ×3 (07:49→20:21)
[2019-06-05] MEDS: VERAPAMIL SR 120 MG TABLET.ER. PO SCH (07:49)
[2019-06-05] MEDS: NYSTATIN TOPICAL POWDER 15GM BOTTLE. TP SCH ×2 (07:50→21:00)
[2019-06-05] MEDS: INSULIN LISPRO 300 UNITS/3 ML VIAL. SQ SCH ×3 (08:03→17:17)
--- NOTE | 2019-06-05 12:43 | NUR ---
SWING BED DOCUMENTATION Nursing Problem: IV antibiotics and wound care secondary to I&D of a diabetic heel wound. Cognitive/Behavioral: A&O, calm, cooperative, [place] Pain: No complaints of pain but pt states she is fatigued today and does not have much energy. Respiratory Status: clear, diminished. SOA during exertion. Skin:Patient in Contact Isolation due to MRSA in wound. Wound on Rt Heel, orthotic shoe on Rt foot, wound care following. last changed 06/04/2019. pt refused cream for her back this am states the rash has healed and is gone. Bowel/Bladder Continence: Has episodes of incontinence of bowel and bladder but is able to void in toilet also with some success. pt has had incontinent episode of soft stool today. collection hat placed in pt restroom for evaluation. ADL Functional Status: upon assessment this am, pt was sleeping. Woke pt up, pt needing to use the restroom. pt brief was dry. pt was able to sit up and swing her legs out of bed independently. pt was handed her walker and pt was able to get up out of bed by herself and required stand by assistance with ambulating with walker and gait belt. pt will take a shower this afternoon per request. pt is independent this am with socks and shoes. pt dressed herself. pt is independent with meals and is social with others. will continue to monitor. ron scott.
--- NOTE | 2019-06-05 15:54 | NUR ---
NURSING NOTE PT HAS HAD 2 EPISODES OF LOOSE STOOL. COLLECTION HAT PUT IN STOOL AND EVALUATED, STOOL IS NOT LOOSE ENOUGH TO TAKE SHAPE OF A CONTAINER SO NO SAMPLE SENT FOR TESTING AT THIS TIME. JEANNINE YING
[2019-06-05 18:18] VITALS: BP 176/49
[2019-06-05 20:16] VITALS: BP 141/56
[2019-06-05] MEDS: MIRTAZAPINE 30 MG TABLET PO SCH (20:21)
[2019-06-05] MEDS: INSULIN GLARGINE SYRINGE. SQ SCH (20:27)
[2019-06-06 05:18] VITALS: BP 152/81
--- NOTE | 2019-06-06 05:59 | NUR ---
SWING BED NOTE Nursing Problem: IV antibiotics and wound care secondary to I&D of diabetic heel wound. Cognitive/Behavioral: A&O, calm, cooperative, mild [place]. Pain: No complaints of pain. Respiratory Status: CTA, RA. SOA upon exertion. Skin: Patient in Contact Isolation due to MRSA in wound. Wound on RT heel, orthotic shoe on RT foot, wound care following. Dressing last changed 06/04/2019. Bowel/Bladder Continence: Has episodes of incontinence of bowel and bladder but is able to void in toilet also with some success. ADL Functional Status: Assessment with PT in chair. PT calm and cooperative with exam. PT requires minimal assistance to bathroom with walker and gait belt use.
[2019-06-06] MEDS: CEFEPIME HCL 1 GM in IV NORMAL SALINE 50ML 50 ML IV SCH ×3 (06:15→22:20)
[2019-06-06] MEDS: INSULIN LISPRO 300 UNITS/3 ML VIAL. SQ SCH ×3 (08:16→17:05)
[2019-06-06] MEDS: LACTOBACILLUS RHAMNOSUS GG 1 CAPSULE. PO SCH ×2 (08:16→17:00)
[2019-06-06] MEDS: ALLOPURINOL 300 MG TABLET. PO SCH (08:16)
[2019-06-06] MEDS: CALCIUM CARB/VIT D3 500/200 TABLET PO SCH ×2 (08:17→17:00)
[2019-06-06] MEDS: GLIMEPIRIDE 2 MG TABLET PO SCH ×2 (08:17→17:00)
[2019-06-06] MEDS: GABAPENTIN 300 MG CAPSULE. PO SCH ×3 (08:17→20:29)
[2019-06-06] MEDS: ASCORBIC ACID 500 MG TABLET PO SCH (08:17)
[2019-06-06] MEDS: FUROSEMIDE 40 MG TABLET PO SCH (08:17)
[2019-06-06] MEDS: NYSTATIN TOPICAL POWDER 15GM BOTTLE. TP SCH ×2 (08:18→20:29)
[2019-06-06] MEDS: METOPROLOL TART IMMED RELEASE 50 MG TABLET PO SCH ×2 (08:18→20:30)
[2019-06-06] MEDS: metroNIDAZOLE 500 MG TABLET PO SCH ×2 (08:18→20:29)
[2019-06-06] MEDS: MULTIVITAMIN with MINERAL TABLET. PO SCH (08:18)
[2019-06-06] MEDS: CLOTRIMAZOLE/BETAMETH 1%-0.05% TOPICAL CREAM 15GM TUBE. TP SCH ×2 (08:18→20:30)
[2019-06-06] MEDS: ASPIRIN 81 MG TAB.CHEW PO SCH (08:18)
[2019-06-06] MEDS: VERAPAMIL SR 120 MG TABLET.ER. PO SCH (08:19)
--- NOTE | 2019-06-06 15:58 | NUR ---
SWING BED NOTE Nursing Problem: IV antibiotics and wound care secondary to I&D of diabetic heel wound. Cognitive/Behavioral: A&O X4, calm and cooperative with staff, mild [place]. Pain: No complaints of pain thus far this shift. Respiratory Status: LCTA, RA. No cough noted. Skin: Patient in Contact Isolation due to MRSA in wound. Wound on RT heel, orthotic shoe on RT foot, wound care following. Dressing last changed 06/04/2019. Bowel/Bladder Continence: Continent of bowel. Occasional incontinence of bladder d/t stress incontinence. Wears pull-up briefs. ADL Functional Status: Patient is set up help only for bathing, dressing, grooming, eating, and toileting use. Patient needs x1 stand by assist with gait belt and wheeled walker for transfers and ambulation.
--- NOTE | 2019-06-06 18:09 | NUR ---
NURSING NOTES: PATIENT WOUND DRESSING CHANGED THIS SHIFT.
[2019-06-06 18:10] VITALS: BP 144/74
[2019-06-06] MEDS: MIRTAZAPINE 30 MG TABLET PO SCH (20:29)
[2019-06-06] MEDS: INSULIN GLARGINE SYRINGE. SQ SCH (20:33)
--- NOTE | 2019-06-07 04:20 | NUR ---
SWING BED NOTE Nursing Problem: IV antibiotics and wound care secondary to I&D of diabetic heel wound. Cognitive/Behavioral: A&O, calm, cooperative, mild [place]. Pain: No complaints of pain. Respiratory Status: CTA, RA. SOA upon exertion. Skin: Patient in Contact Isolation due to MRSA in wound. Wound on RT heel, orthotic shoe on RT foot, wound care following. Dressing last changed 06/06/2019. Bowel/Bladder Continence: Has episodes of incontinence of bowel and bladder but is able to void in toilet also with some success. ADL Functional Status: Assessment with PT in chair. PT calm and cooperative with exam. PT requires minimal assistance to bathroom with walker and gait belt use.
[2019-06-07 06:06] VITALS: BP 146/80
[2019-06-07] MEDS: CEFEPIME HCL 1 GM in IV NORMAL SALINE 50ML 50 ML IV SCH ×3 (06:22→21:02)
[2019-06-07] MEDS: VERAPAMIL SR 120 MG TABLET.ER. PO SCH (08:13)
[2019-06-07] MEDS: GABAPENTIN 300 MG CAPSULE. PO SCH ×3 (08:13→21:01)
[2019-06-07] MEDS: LACTOBACILLUS RHAMNOSUS GG 1 CAPSULE. PO SCH ×2 (08:13→16:50)
[2019-06-07] MEDS: ASCORBIC ACID 500 MG TABLET PO SCH (08:13)
[2019-06-07] MEDS: GLIMEPIRIDE 2 MG TABLET PO SCH ×2 (08:13→16:50)
[2019-06-07] MEDS: metroNIDAZOLE 500 MG TABLET PO SCH ×2 (08:13→21:01)
[2019-06-07] MEDS: MULTIVITAMIN with MINERAL TABLET. PO SCH (08:14)
[2019-06-07] MEDS: FUROSEMIDE 40 MG TABLET PO SCH (08:14)
[2019-06-07] MEDS: METOPROLOL TART IMMED RELEASE 50 MG TABLET PO SCH ×2 (08:14→21:01)
[2019-06-07] MEDS: ALLOPURINOL 300 MG TABLET. PO SCH (08:14)
[2019-06-07] MEDS: NYSTATIN TOPICAL POWDER 15GM BOTTLE. TP SCH ×2 (08:14→21:00)
[2019-06-07] MEDS: CALCIUM CARB/VIT D3 500/200 TABLET PO SCH ×2 (08:14→16:50)
[2019-06-07] MEDS: CLOTRIMAZOLE/BETAMETH 1%-0.05% TOPICAL CREAM 15GM TUBE. TP SCH ×2 (08:14→21:00)
[2019-06-07] MEDS: ASPIRIN 81 MG TAB.CHEW PO SCH (08:14)
[2019-06-07] MEDS: INSULIN LISPRO 300 UNITS/3 ML VIAL. SQ SCH ×3 (08:22→16:55)
--- NOTE | 2019-06-07 13:06 | NUR ---
SWING BED NOTE Nursing Problem: IV antibiotics and wound care secondary to I&D of diabetic heel wound. Cognitive/Behavioral: A&O X4, calm and cooperative with staff, mild [place]. Pain: No complaints of pain thus far this shift. Respiratory Status: LCTA, RA. No cough noted. Skin: Patient in Contact Isolation due to MRSA in wound. Wound on RT heel, orthotic shoe on RT foot, wound care following. Dressing last changed 06/06/2019. Bowel/Bladder Continence: Continent of bowel. Occasional incontinence of bladder d/t stress incontinence. Wears pull-up briefs. ADL Functional Status: Patient is set up help only for bathing, dressing, grooming, eating, and toileting use. Patient needs x1 stand by assist with gait belt and wheeled walker for transfers and ambulation.
--- NOTE | 2019-06-07 13:30 | NUR ---
DURATION: 60 CENSUS: 1 ACTIVITY: COG STIM/SOCIALIZATION SESSION TITLE: The Ungame ad Fitness movements. PARTICIPATION: ENTIRE YES FULL: Pt sat and played the ungame with staff and one other therapist. Pt answred questions, read, conversed, laughed, and cried tears of abdirahman during the Activity therapy group. In between questions, pt would stop and conduct fitness functional movemnts that aid her with ADL's.
[2019-06-07 19:20] VITALS: BP 155/68
[2019-06-07] MEDS: INSULIN GLARGINE SYRINGE. SQ SCH (21:00)
--- NOTE | 2019-06-07 21:00 | NUR ---
Pt's PICC line was not drawing back blood; however, was flushing. Cath génesis ordered at this time.
[2019-06-07] MEDS: MIRTAZAPINE 30 MG TABLET PO SCH (21:01)
[2019-06-07] MEDS ORDERED: ALTEPLASE 2 MG VIAL INT CAT ONE (21:30)
--- NOTE | 2019-06-07 23:10 | NUR ---
Administered Cath Marceilno 30 min prior. Pt's PICC line cedrick back blood at this time. Flushed with 10 cc NS. Will continue to monitor.
--- NOTE | 2019-06-07 23:14 | NUR ---
SWING BED NOTE Nursing Problem: IV antibiotics and wound care secondary to I&D of diabetic heel wound. Cognitive/Behavioral: A&O, calm, cooperative, mild [place]. Pain: No complaints of pain. Respiratory Status: CTA, RA. SOA upon exertion. Skin: Patient in Contact Isolation due to MRSA in wound. Wound on RT heel, orthotic shoe on RT foot, wound care following. Dressing last changed 06/06/2019. Bowel/Bladder Continence: Has episodes of incontinence of bowel and bladder but is able to void in toilet also with some success. Last BM:06/07. ADL Functional Status: Assessment with PT in chair. PT calm and cooperative with exam. PT requires minimal assistance to bathroom with walker and gait belt use.
[2019-06-08] MEDS: CEFEPIME HCL 1 GM in IV NORMAL SALINE 50ML 50 ML IV SCH ×3 (05:18→21:51)
[2019-06-08 06:04] VITALS: BP 157/66
[2019-06-08] MEDS: CALCIUM CARB/VIT D3 500/200 TABLET PO SCH ×2 (08:00→17:00)
[2019-06-08] MEDS: GABAPENTIN 300 MG CAPSULE. PO SCH ×3 (08:51→20:49)
[2019-06-08] MEDS: ASPIRIN 81 MG TAB.CHEW PO SCH (08:51)
[2019-06-08] MEDS: METOPROLOL TART IMMED RELEASE 50 MG TABLET PO SCH ×2 (08:51→20:52)
[2019-06-08] MEDS: LACTOBACILLUS RHAMNOSUS GG 1 CAPSULE. PO SCH ×2 (08:51→18:25)
[2019-06-08] MEDS: metroNIDAZOLE 500 MG TABLET PO SCH ×2 (08:52→20:49)
[2019-06-08] MEDS: ASCORBIC ACID 500 MG TABLET PO SCH (08:52)
[2019-06-08] MEDS: ALLOPURINOL 300 MG TABLET. PO SCH (08:52)
[2019-06-08] MEDS: MULTIVITAMIN with MINERAL TABLET. PO SCH (08:52)
[2019-06-08] MEDS: GLIMEPIRIDE 2 MG TABLET PO SCH ×2 (08:52→18:25)
[2019-06-08] MEDS: FUROSEMIDE 40 MG TABLET PO SCH (08:53)
[2019-06-08] MEDS: INSULIN LISPRO 300 UNITS/3 ML VIAL. SQ SCH ×3 (08:55→18:44)
[2019-06-08] MEDS: NYSTATIN TOPICAL POWDER 15GM BOTTLE. TP SCH ×2 (09:00→20:51)
[2019-06-08] MEDS: CLOTRIMAZOLE/BETAMETH 1%-0.05% TOPICAL CREAM 15GM TUBE. TP SCH ×2 (09:00→20:49)
[2019-06-08] MEDS: VERAPAMIL SR 120 MG TABLET.ER. PO SCH (09:05)
[2019-06-08 17:53] VITALS: BP 159/79
[2019-06-08] MEDS: MIRTAZAPINE 30 MG TABLET PO SCH (20:49)
[2019-06-08] MEDS: INSULIN GLARGINE SYRINGE. SQ SCH (20:54)
--- NOTE | 2019-06-09 04:47 | NUR ---
SWING BED NOTE Nursing Problem: IV antibiotics and wound care secondary to I&D of diabetic heel wound. Cognitive/Behavioral: A&O, calm, cooperative, mild [place]. Pain: No complaints of pain. Respiratory Status: CTA, RA. SOA upon exertion. Skin: Patient in Contact Isolation due to MRSA in wound. Wound on RT heel, orthotic shoe on RT foot, wound care following. Dressing last changed 06/08/2019. Bowel/Bladder Continence: Has episodes of incontinence of bowel and bladder but is able to void in toilet also with some success. Last BM:06/08. ADL Functional Status: Assessment with PT in chair. PT calm and cooperative with exam. PT requires minimal assistance to bathroom with walker and gait belt use.
[2019-06-09 05:22] VITALS: BP 116/71
[2019-06-09] MEDS: CEFEPIME HCL 1 GM in IV NORMAL SALINE 50ML 50 ML IV SCH ×3 (06:05→21:49)
[2019-06-09] MEDS: CALCIUM CARB/VIT D3 500/200 TABLET PO SCH ×2 (08:24→17:02)
[2019-06-09] MEDS: ASPIRIN 81 MG TAB.CHEW PO SCH (08:24)
[2019-06-09] MEDS: ASCORBIC ACID 500 MG TABLET PO SCH (08:24)
[2019-06-09] MEDS: METOPROLOL TART IMMED RELEASE 50 MG TABLET PO SCH ×2 (08:24→20:19)
[2019-06-09] MEDS: MULTIVITAMIN with MINERAL TABLET. PO SCH (08:25)
[2019-06-09] MEDS: metroNIDAZOLE 500 MG TABLET PO SCH ×2 (08:25→20:10)
[2019-06-09] MEDS: FUROSEMIDE 40 MG TABLET PO SCH (08:25)
[2019-06-09] MEDS: ALLOPURINOL 300 MG TABLET. PO SCH (08:25)
[2019-06-09] MEDS: LACTOBACILLUS RHAMNOSUS GG 1 CAPSULE. PO SCH ×2 (08:25→17:02)
[2019-06-09] MEDS: GLIMEPIRIDE 2 MG TABLET PO SCH ×2 (08:25→17:02)
[2019-06-09] MEDS: GABAPENTIN 300 MG CAPSULE. PO SCH ×3 (08:25→20:09)
[2019-06-09] MEDS: CLOTRIMAZOLE/BETAMETH 1%-0.05% TOPICAL CREAM 15GM TUBE. TP SCH ×2 (08:26→20:10)
[2019-06-09] MEDS: NYSTATIN TOPICAL POWDER 15GM BOTTLE. TP SCH ×2 (08:26→20:29)
[2019-06-09] MEDS: VERAPAMIL SR 120 MG TABLET.ER. PO SCH (08:26)
[2019-06-09 13:33] LABS: BASO # 0.1 x10^3/uL (0.0-0.2); BASO % 1 % (0-3); EOS # 0.7 x10^3/uL (0.0-0.7); EOS % 8 % (0-3); HEMATOCRIT 37.2 % (36.0-47.0); HEMOGLOBIN 11.9 g/dL (12.0-15.5); LYMPH # 1.8 x10^3/uL (1.0-4.8); LYMPH % 21 % (24-48); MEAN CORPUSCULAR HEMOGLOBIN 30 pg (25-35); MEAN CORPUSCULAR HGB CONC 32 g/dL (31-37); MEAN CORPUSCULAR VOLUME 95 fL (79-100); MONO # 0.8 x10^3/uL (0.0-1.1); MONO % 9 % (0-9); NEUT # 5.2 x10^3uL (1.8-7.7); NEUT % 61 % (31-73); PLATELET COUNT 229 x10^3/uL (140-400); RED BLOOD COUNT 3.91 x10^6/uL (3.50-5.40); RED CELL DISTRIBUTION WIDTH 16.5 % (11.5-14.5); WHITE BLOOD COUNT 8.6 x10^3/uL (4.0-11.0)
[2019-06-09 13:40] LABS: ALBUMIN 2.9 g/dL (3.4-5.0); ALBUMIN/GLOBULIN RATIO 0.7 (1.0-1.7); CALCIUM 9.3 mg/dL (8.5-10.1); CREATININE 1.2 mg/dL (0.6-1.0); GFR 42.4; POTASSIUM 4.4 mmol/L (3.5-5.1); TOTAL BILIRUBIN 0.2 mg/dL (0.2-1.0); TOTAL PROTEIN 6.9 g/dL (6.4-8.2)
[2019-06-09] MEDS: INSULIN LISPRO 300 UNITS/3 ML VIAL. SQ SCH ×3 (15:02→18:09)
--- NOTE | 2019-06-09 18:19 | NUR ---
Swing Bed Nursing Note: Nursing Problem: IV antibiotics and wound care secondary to I&D of a diabetic heel wound. Cognitive/Behavioral: Alert and oriented X's 4, pleasant and cooperative, [place] Pain: No complaints of pain Respiratory Status: Room air, no cough, Lungs clear on assessmentmut patient develops SOA with exertion. Skin:Patient in Contact Isolation due to MRSA in wound. Wound on Rt Heel, orthotic shoe on Rt foot, wound care following. Bowel/Bladder Continence: Pt has been continent of bowel and bladder this shift. Last BM 06/09 ADL Functional Status: Patient is independent in her bed, getting out of chair, and off of bed. She is standby with ambulation in room and hallway. Independent with eating but needed assistance with opening drink containers. Patient was able to toilet independently except for getting pant leg over orthotic. Patient did lose balance leaning forward to pull up pants with staff assist needed to complete task and prevent fall. No visitors today. Patient was on bedside working on word puzzles majority of day and watching tv.
[2019-06-09] MEDS: MIRTAZAPINE 30 MG TABLET PO SCH (20:10)
[2019-06-09] MEDS: INSULIN GLARGINE SYRINGE. SQ SCH (20:23)
[2019-06-09 20:44] VITALS: BP 127/77
--- NOTE | 2019-06-09 20:48 | NUR ---
Swing Bed Nursing Note: Nursing Problem: IV antibiotics and wound care secondary to I&D of a diabetic heel wound. Cognitive/Behavioral: Alert and oriented X's 4, pleasant and cooperative, [place] Pain: No complaints of pain Respiratory Status: Room air, no cough, Lungs clear on assessment patient develops SOA with exertion. Skin:Patient in Contact Isolation due to MRSA in wound. Wound on Rt Heel, orthotic shoe on Rt foot, wound care following. Bowel/Bladder Continence: Pt has been continent of bowel and bladder this shift. Last BM 06/09 ADL Functional Status: Patient is independent in her bed, getting out of chair, and off of bed. She is standby with ambulation in room and hallway. Independent with eating but needed assistance with opening drink containers. Patient was able to toilet independently except for getting pant leg over orthotic. Patient did lose balance leaning forward to pull up pants with staff assist needed to complete task and prevent fall. No visitors today. Patient was on bedside working on word puzzles majority of day and watching tv.
[2019-06-10 05:59] VITALS: BP 150/91
[2019-06-10] MEDS: CEFEPIME HCL 1 GM in IV NORMAL SALINE 50ML 50 ML IV SCH ×3 (06:11→21:55)
[2019-06-10] MEDS: MULTIVITAMIN with MINERAL TABLET. PO SCH (08:01)
[2019-06-10] MEDS: METOPROLOL TART IMMED RELEASE 50 MG TABLET PO SCH ×2 (08:01→20:30)
[2019-06-10] MEDS: VERAPAMIL SR 120 MG TABLET.ER. PO SCH (08:01)
[2019-06-10] MEDS: GLIMEPIRIDE 2 MG TABLET PO SCH ×2 (08:01→17:19)
[2019-06-10] MEDS: ALLOPURINOL 300 MG TABLET. PO SCH (08:01)
[2019-06-10] MEDS: GABAPENTIN 300 MG CAPSULE. PO SCH ×3 (08:01→20:30)
[2019-06-10] MEDS: ASCORBIC ACID 500 MG TABLET PO SCH (08:01)
[2019-06-10] MEDS: CALCIUM CARB/VIT D3 500/200 TABLET PO SCH ×2 (08:01→17:19)
[2019-06-10] MEDS: ASPIRIN 81 MG TAB.CHEW PO SCH (08:02)
[2019-06-10] MEDS: FUROSEMIDE 40 MG TABLET PO SCH (08:02)
[2019-06-10] MEDS: metroNIDAZOLE 500 MG TABLET PO SCH ×2 (08:02→20:30)
[2019-06-10] MEDS: LACTOBACILLUS RHAMNOSUS GG 1 CAPSULE. PO SCH ×2 (08:02→17:19)
[2019-06-10] MEDS: NYSTATIN TOPICAL POWDER 15GM BOTTLE. TP SCH ×2 (08:05→20:31)
[2019-06-10] MEDS: CLOTRIMAZOLE/BETAMETH 1%-0.05% TOPICAL CREAM 15GM TUBE. TP SCH ×2 (08:05→20:30)
[2019-06-10] MEDS: INSULIN LISPRO 300 UNITS/3 ML VIAL. SQ SCH ×3 (08:15→17:18)
[2019-06-10 10:08] LABS: BASO # 0.1 x10^3/uL (0.0-0.2); BASO % 1 % (0-3); EOS # 0.9 x10^3/uL (0.0-0.7); EOS % 10 % (0-3); HEMATOCRIT 38.3 % (36.0-47.0); HEMOGLOBIN 12.2 g/dL (12.0-15.5); LYMPH # 1.7 x10^3/uL (1.0-4.8); LYMPH % 18 % (24-48); MEAN CORPUSCULAR HEMOGLOBIN 31 pg (25-35); MEAN CORPUSCULAR HGB CONC 32 g/dL (31-37); MEAN CORPUSCULAR VOLUME 96 fL (79-100); MONO # 0.8 x10^3/uL (0.0-1.1); MONO % 9 % (0-9); NEUT # 5.7 x10^3uL (1.8-7.7); NEUT % 62 % (31-73); PLATELET COUNT 267 x10^3/uL (140-400); RED CELL DISTRIBUTION WIDTH 16.8 % (11.5-14.5); WHITE BLOOD COUNT 9.1 x10^3/uL (4.0-11.0)
[2019-06-10 10:33] LABS: ALBUMIN 2.9 g/dL (3.4-5.0); ALBUMIN/GLOBULIN RATIO 0.7 (1.0-1.7); CALCIUM 9.3 mg/dL (8.5-10.1); CREATININE 1.4 mg/dL (0.6-1.0); GFR 35.5; POTASSIUM 4.6 mmol/L (3.5-5.1); TOTAL BILIRUBIN 0.3 mg/dL (0.2-1.0); TOTAL PROTEIN 7.3 g/dL (6.4-8.2)
[2019-06-10 11:13] LABS: SEDIMENTATION RATE 43 (0-25)
--- NOTE | 2019-06-10 15:31 | NUR ---
Swing Bed Nursing Note: Nursing Problem: IV antibiotics and wound care secondary to I&D of diabetic heel wound right foot. Cognitive/Behavioral: Alert and oriented X's 4, pleasant and cooperative, [place] Pain: No complaints of pain Respiratory Status: Room air, no cough, Lungs clear on assessment patient develops SOA with exertion but has improved Skin:Patient in Contact Isolation due to MRSA in wound. Wound on Rt Heel, orthotic shoe on Rt foot, wound care following. Bowel/Bladder Continence: Pt has been continent of bowel and bladder this shift. Last BM 06/20 ADL Functional Status: Patient is independent in her bed, getting out of chair, and off of bed. She is standby with ambulation in room and hallway. Independent with eating but needed assistance with opening drink containers. Patient was able to toilet independently except for getting pant leg over orthotic.
[2019-06-10 18:11] VITALS: BP 148/76
[2019-06-10] MEDS: MIRTAZAPINE 30 MG TABLET PO SCH (20:30)
[2019-06-10 20:40] VITALS: BP 138/82
[2019-06-10] MEDS: INSULIN GLARGINE SYRINGE. SQ SCH (20:44)
--- NOTE | 2019-06-10 23:50 | NUR ---
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 Plan is for Pt to return back home with . Cognitive/Behavioral: Pt is alert and oriented X's 4. Pt was pleasant and cooperative with all cares and assessments. Pt was sitting up in chair watching TV and working in word search book at change of shift. Pt has appointment with infectious disease clinic tomorrow for her follow up, talked excitingly about being "out and about." Pt is [place]. Pain: No complaints of pain. Respiratory Status: Pt is on room air, no cough or SOA noted. Lungs clear on assessment. 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 Pt with orthotic shoe on Rt foot, wound care following. Dressing C/D/I. Pt has appointment with ID tomorrow for follow up. Bowel/Bladder Continence: Pt has been continent of bowel and bladder this shift. Last BM 06/10 ADL Functional Status: Pt is independent in her bed, getting out of chair and out of bed. Pt is standby assist with ambulation in room and hallway with walker and gait belt. Pt is independent with eating but needed assistance with opening drink containers. Pt was able to dress independently except for getting pant leg over orthotic shoe. Pt can toilet independently.
[2019-06-11] MEDS: CEFEPIME HCL 1 GM in IV NORMAL SALINE 50ML 50 ML IV SCH ×2 (05:45→18:30)
[2019-06-11 05:55] VITALS: BP 161/63
[2019-06-11] MEDS: METOPROLOL TART IMMED RELEASE 50 MG TABLET PO SCH ×2 (08:04→20:23)
[2019-06-11] MEDS: GLIMEPIRIDE 2 MG TABLET PO SCH ×2 (08:04→17:57)
[2019-06-11] MEDS: ALLOPURINOL 300 MG TABLET. PO SCH (08:04)
[2019-06-11] MEDS: ASPIRIN 81 MG TAB.CHEW PO SCH (08:04)
[2019-06-11] MEDS: GABAPENTIN 300 MG CAPSULE. PO SCH ×3 (08:04→20:23)
[2019-06-11] MEDS: ASCORBIC ACID 500 MG TABLET PO SCH (08:04)
[2019-06-11] MEDS: MULTIVITAMIN with MINERAL TABLET. PO SCH (08:04)
[2019-06-11] MEDS: CALCIUM CARB/VIT D3 500/200 TABLET PO SCH ×2 (08:04→17:57)
[2019-06-11] MEDS: VERAPAMIL SR 120 MG TABLET.ER. PO SCH (08:05)
[2019-06-11] MEDS: metroNIDAZOLE 500 MG TABLET PO SCH ×2 (08:05→20:23)
[2019-06-11] MEDS: CLOTRIMAZOLE/BETAMETH 1%-0.05% TOPICAL CREAM 15GM TUBE. TP SCH ×2 (08:05→21:00)
[2019-06-11] MEDS: FUROSEMIDE 40 MG TABLET PO SCH (08:05)
[2019-06-11] MEDS: NYSTATIN TOPICAL POWDER 15GM BOTTLE. TP SCH ×2 (08:05→20:23)
[2019-06-11] MEDS: LACTOBACILLUS RHAMNOSUS GG 1 CAPSULE. PO SCH ×2 (08:05→17:57)
[2019-06-11] MEDS: INSULIN LISPRO 300 UNITS/3 ML VIAL. SQ SCH ×3 (08:12→18:05)
--- NOTE | 2019-06-11 08:39 | NUR ---
Wound Care Wound care follow up for right foot wound dressing change. Dressing removed, wound cleansed, and measured. Wound dressed with major, Hydrofera blue, versatel contact layer and foam dressing, recommend to change every 2-3 days. Periwound slightly macerated. No other wounds noted on full skin inspection. If pt discharges she will follow up in [facility]. Patient is going to ID appointment today, extra dressing left in case they remove it. WC will continue to follow for possible changes
--- NOTE | 2019-06-11 14:08 | NUR ---
NURSING NOTES: PATIENT LEFT FACILITY WITH AND SON FOR INFECTIOUS DISEASE APPOINTMENT AT 1315. NO CONCERNS AT THIS TIME.
--- NOTE | 2019-06-11 14:09 | NUR ---
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 Plan is for Pt to return back home with . Cognitive/Behavioral: Pt is alert and oriented X's 4. Pt was pleasant and cooperative with all cares and assessments. Pt was sleeping in bed at change of shift. Pt is [place]. Pain: No complaints of pain. Respiratory Status: Pt is on room air, no cough or SOA noted. Lungs clear on assessment. 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 Pt with orthotic shoe on Rt foot, wound care following. Dressing changed this am by wound care nurse, see wound care note. Bowel/Bladder Continence: Pt has been continent of bowel and bladder this shift. Last BM 06/11 ADL Functional Status: Pt is independent in her bed, getting out of chair and out of bed. Pt is standby assist with ambulation in room and hallway with walker and gait belt. Pt is independent with eating but needed assistance with opening drink containers. Pt was able to dress independently except for getting pant leg over orthotic shoe. Pt can toilet independently.
--- NOTE | 2019-06-11 17:51 | NUR ---
NURSING NOTES: PATIENT RETURNED TO FACILITY WITH . ORDERS RECEIVED TO CONTINUE CEFEPIME THROUGH 06/14. DISCONTINUE PICC LINE 06/15. START KEFLEX 500MG PO QID FOR 2 WEEKS START 06/15. FOLLOW UP WITH INFECTION DISEASE ON 06/27. NO FURTHER CONCERNS AT THIS TIME.
[2019-06-11 19:47] VITALS: BP 144/74
[2019-06-11] MEDS: MIRTAZAPINE 30 MG TABLET PO SCH (20:23)
[2019-06-11] MEDS: INSULIN GLARGINE SYRINGE. SQ SCH (21:02)
--- NOTE | 2019-06-12 04:29 | NUR ---
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 Plan is for Pt to return back home with . Cognitive/Behavioral: Pt is alert and oriented X's 4. Pt was pleasant and cooperative with all cares and assessments. Pt is [place]. Pain: No c/o pain. Respiratory Status: Lungs CTA on RA. No cough or SOA observed. 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 Pt with orthotic shoe on Rt foot, wound care following. Dressing changed 06/11/19 by wound care nurse, see notes. Bowel/Bladder Continence: Pt has been continent of bowel and bladder this shift. Last BM 06/11 ADL Functional Status: Pt is independent in her bed, getting out of chair and out of bed. Pt is standby assist with ambulation in room and hallway with walker and gait belt. Pt was able to dress independently except for getting pant leg over orthotic shoe. Pt can toilet independently.
[2019-06-12] MEDS: CEFEPIME HCL 1 GM in IV NORMAL SALINE 50ML 50 ML IV SCH ×2 (05:36→18:05)
[2019-06-12 06:00] VITALS: BP 153/79
[2019-06-12] MEDS: GABAPENTIN 300 MG CAPSULE. PO SCH ×3 (08:15→20:41)
[2019-06-12] MEDS: ALLOPURINOL 300 MG TABLET. PO SCH (08:15)
[2019-06-12] MEDS: METOPROLOL TART IMMED RELEASE 50 MG TABLET PO SCH ×2 (08:16→20:41)
[2019-06-12] MEDS: ASPIRIN 81 MG TAB.CHEW PO SCH (08:16)
[2019-06-12] MEDS: metroNIDAZOLE 500 MG TABLET PO SCH ×2 (08:16→20:39)
[2019-06-12] MEDS: GLIMEPIRIDE 2 MG TABLET PO SCH ×2 (08:16→17:24)
[2019-06-12] MEDS: FUROSEMIDE 40 MG TABLET PO SCH (08:16)
[2019-06-12] MEDS: MULTIVITAMIN with MINERAL TABLET. PO SCH (08:16)
[2019-06-12] MEDS: ASCORBIC ACID 500 MG TABLET PO SCH (08:17)
[2019-06-12] MEDS: LACTOBACILLUS RHAMNOSUS GG 1 CAPSULE. PO SCH ×2 (08:17→17:24)
[2019-06-12] MEDS: CALCIUM CARB/VIT D3 500/200 TABLET PO SCH ×2 (08:17→17:23)
[2019-06-12] MEDS: ALENDRONATE SODIUM 35 MG TABLET PO SCH (08:17)
[2019-06-12] MEDS: VERAPAMIL SR 120 MG TABLET.ER. PO SCH (08:18)
[2019-06-12] MEDS: CLOTRIMAZOLE/BETAMETH 1%-0.05% TOPICAL CREAM 15GM TUBE. TP SCH ×2 (08:19→20:42)
[2019-06-12] MEDS: NYSTATIN TOPICAL POWDER 15GM BOTTLE. TP SCH ×2 (08:19→20:43)
[2019-06-12] MEDS: INSULIN LISPRO 300 UNITS/3 ML VIAL. SQ SCH ×3 (08:26→17:28)
[2019-06-12 18:23] VITALS: BP 95/56
[2019-06-12] MEDS: MIRTAZAPINE 30 MG TABLET PO SCH (20:41)
[2019-06-12] MEDS: INSULIN GLARGINE SYRINGE. SQ SCH (20:45)
--- NOTE | 2019-06-13 01:51 | NUR ---
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 Plan is for Pt to return back home with . Cognitive/Behavioral: Pt is alert and oriented X's 4. Pt was pleasant and cooperative with all cares and assessments. Pt is [place]. Pain: No c/o pain. Respiratory Status: Lungs CTA on RA. No cough or SOA observed. 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 Pt with orthotic shoe on Rt foot, wound care following. Dressing changed 06/11/19 by wound care nurse, see notes. Bowel/Bladder Continence: Pt has been continent of bowel and bladder this shift. Last BM 06/11 ADL Functional Status: Pt is independent in her bed, getting out of chair and out of bed. Pt is standby assist with ambulation in room and hallway with walker and gait belt. Pt was able to dress independently. Pt can toilet independently.
[2019-06-13 05:50] VITALS: BP 145/71
[2019-06-13] MEDS: CEFEPIME HCL 1 GM in IV NORMAL SALINE 50ML 50 ML IV SCH ×2 (05:53→18:05)
[2019-06-13] MEDS: INSULIN LISPRO 300 UNITS/3 ML VIAL. SQ SCH ×3 (08:00→17:23)
[2019-06-13] MEDS: LACTOBACILLUS RHAMNOSUS GG 1 CAPSULE. PO SCH ×2 (08:04→17:19)
[2019-06-13] MEDS: ASCORBIC ACID 500 MG TABLET PO SCH (08:04)
[2019-06-13] MEDS: metroNIDAZOLE 500 MG TABLET PO SCH ×2 (08:04→20:19)
[2019-06-13] MEDS: FUROSEMIDE 40 MG TABLET PO SCH (08:04)
[2019-06-13] MEDS: CALCIUM CARB/VIT D3 500/200 TABLET PO SCH ×2 (08:04→17:19)
[2019-06-13] MEDS: GLIMEPIRIDE 2 MG TABLET PO SCH ×2 (08:04→17:19)
[2019-06-13] MEDS: GABAPENTIN 300 MG CAPSULE. PO SCH ×3 (08:04→20:19)
[2019-06-13] MEDS: ALLOPURINOL 300 MG TABLET. PO SCH (08:04)
[2019-06-13] MEDS: MULTIVITAMIN with MINERAL TABLET. PO SCH (08:04)
[2019-06-13] MEDS: METOPROLOL TART IMMED RELEASE 50 MG TABLET PO SCH ×2 (08:05→20:19)
[2019-06-13] MEDS: VERAPAMIL SR 120 MG TABLET.ER. PO SCH (08:05)
[2019-06-13] MEDS: ASPIRIN 81 MG TAB.CHEW PO SCH (08:05)
[2019-06-13] MEDS: CLOTRIMAZOLE/BETAMETH 1%-0.05% TOPICAL CREAM 15GM TUBE. TP SCH ×2 (08:05→20:20)
[2019-06-13] MEDS: NYSTATIN TOPICAL POWDER 15GM BOTTLE. TP SCH ×2 (08:06→20:20)
--- NOTE | 2019-06-13 10:28 | NUR ---
Patient is alert and oriented x 4, speech is clear, Able to make wants and needs known and able to verbalize understanding of others. No negative moods or behaviors. Patient is very pleasant and cooperative with staff in all cares. Patient is supervised with transfers using walker and gait belt. Requires assistance removing boot to Right foot. Independent with dressing and bed mobility. Continent of bowel and bladder, does wear disposable briefs for dignity. Lungs are CTA, RA, respirations are equal and unlabored, no cough or SOA observed. Abdomen is round and obese, soft and non tender, bowel sounds active in all 4 quadrants. Skin is in tact. Diet is ADA, low sodium . SL PICC in [place]AL[place], Cefepime BID. Last BM 06/11/2019. Patient is now resting in room in chair with call light and fresh fluids with in reach .
[2019-06-13 20:04] VITALS: BP 127/62
[2019-06-13] MEDS: MIRTAZAPINE 30 MG TABLET PO SCH (20:19)
[2019-06-13] MEDS: INSULIN GLARGINE SYRINGE. SQ SCH (20:25)
--- NOTE | 2019-06-13 21:47 | NUR ---
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 Plan is for Pt to return back home with . Cognitive/Behavioral: Pt is alert and oriented X's 4. Pt was pleasant and cooperative with all cares and assessments. Pt is [place]. Pain: No c/o pain. Respiratory Status: Lungs CTA on RA. No cough or SOA observed. 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 Pt with orthotic shoe on Rt foot, wound care following. Dressing changed 06/11/19 by wound care nurse, see notes. Bowel/Bladder Continence: Pt has been continent of bowel and bladder this shift. Last BM 06/13 ADL Functional Status: Pt is independent in her bed, getting out of chair and out of bed. Pt is standby assist with ambulation in room and hallway with walker and gait belt. Pt was able to dress independently. Pt can toilet independently.
[2019-06-14 05:29] VITALS: BP 149/72
[2019-06-14] MEDS: CEFEPIME HCL 1 GM in IV NORMAL SALINE 50ML 50 ML IV SCH ×2 (06:11→18:01)
[2019-06-14] MEDS: VERAPAMIL SR 120 MG TABLET.ER. PO SCH (08:40)
[2019-06-14] MEDS: MULTIVITAMIN with MINERAL TABLET. PO SCH (08:41)
[2019-06-14] MEDS: ASPIRIN 81 MG TAB.CHEW PO SCH (08:41)
[2019-06-14] MEDS: CALCIUM CARB/VIT D3 500/200 TABLET PO SCH ×2 (08:41→17:10)
[2019-06-14] MEDS: LACTOBACILLUS RHAMNOSUS GG 1 CAPSULE. PO SCH ×2 (08:41→17:10)
[2019-06-14] MEDS: GABAPENTIN 300 MG CAPSULE. PO SCH ×3 (08:41→21:07)
[2019-06-14] MEDS: ASCORBIC ACID 500 MG TABLET PO SCH (08:41)
[2019-06-14] MEDS: FUROSEMIDE 40 MG TABLET PO SCH (08:41)
[2019-06-14] MEDS: GLIMEPIRIDE 2 MG TABLET PO SCH ×2 (08:42→17:10)
[2019-06-14] MEDS: ALLOPURINOL 300 MG TABLET. PO SCH (08:42)
[2019-06-14] MEDS: metroNIDAZOLE 500 MG TABLET PO SCH ×2 (08:42→21:07)
[2019-06-14] MEDS: CLOTRIMAZOLE/BETAMETH 1%-0.05% TOPICAL CREAM 15GM TUBE. TP SCH ×2 (08:42→21:09)
[2019-06-14] MEDS: INSULIN LISPRO 300 UNITS/3 ML VIAL. SQ SCH ×3 (08:48→17:16)
[2019-06-14] MEDS: NYSTATIN TOPICAL POWDER 15GM BOTTLE. TP SCH ×2 (08:49→21:09)
[2019-06-14] MEDS: METOPROLOL TART IMMED RELEASE 50 MG TABLET PO SCH ×2 (08:49→21:09)
--- NOTE | 2019-06-14 14:18 | NUR ---
Swing Bed Nursing Note Patient Handbook for Half-Way given to patient. Nursing Problem: DFU Rt. Heel, S/P L &D, Osteomyelitis, PT/OT Cognitive/Behavioral: Alert&Oriented x 4. Pain: None reported at this time Respiratory Status: room air Skin: R Foot DFU, dressing changed 06/13/19, dry intact. Bowel/Bladder Continence: Stress incontinence, wears brief, ambulates to bathroom ADL Functional Status: Pt can feed self with stand by assist only, pt ambulates with walker and gait belt, pt dresses self with set up help only
[2019-06-14 18:25] VITALS: BP 121/73
[2019-06-14] MEDS: MIRTAZAPINE 30 MG TABLET PO SCH (21:07)
[2019-06-14] MEDS: INSULIN GLARGINE SYRINGE. SQ SCH (21:13)
--- NOTE | 2019-06-15 03:41 | NUR ---
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 Plan is for Pt to return back home with . Cognitive/Behavioral: Pt is alert and oriented X's 4. Pt was pleasant and cooperative with all cares and assessments. Pt is [place]. Pain: No c/o pain. Respiratory Status: Lungs CTA on RA. No cough or SOA observed. 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 Pt with orthotic shoe on Rt foot, wound care following. Dressing changed 06/13/19 by wound care nurse, see notes. Bowel/Bladder Continence: Pt has been continent of bowel and bladder this shift. Last BM 06/14/19. ADL Functional Status: Pt is independent in her bed, getting out of chair and out of bed. Pt is standby assist with ambulation in room and hallway with walker and gait belt. Pt was able to dress independently. Pt can toilet independently.
[2019-06-15 05:54] VITALS: BP 131/64
[2019-06-15] MEDS: CLOTRIMAZOLE/BETAMETH 1%-0.05% TOPICAL CREAM 15GM TUBE. TP SCH (09:00)
[2019-06-15] MEDS: MULTIVITAMIN with MINERAL TABLET. PO SCH (10:37)
[2019-06-15] MEDS: CALCIUM CARB/VIT D3 500/200 TABLET PO SCH (10:37)
[2019-06-15] MEDS: metroNIDAZOLE 500 MG TABLET PO SCH (10:37)
[2019-06-15] MEDS: METOPROLOL TART IMMED RELEASE 50 MG TABLET PO SCH (10:37)
[2019-06-15] MEDS: ASCORBIC ACID 500 MG TABLET PO SCH (10:37)
[2019-06-15] MEDS: LACTOBACILLUS RHAMNOSUS GG 1 CAPSULE. PO SCH (10:37)
[2019-06-15] MEDS: ASPIRIN 81 MG TAB.CHEW PO SCH (10:38)
[2019-06-15] MEDS: ALLOPURINOL 300 MG TABLET. PO SCH (10:38)
[2019-06-15] MEDS: FUROSEMIDE 40 MG TABLET PO SCH (10:38)
[2019-06-15] MEDS: GLIMEPIRIDE 2 MG TABLET PO SCH (10:38)
[2019-06-15] MEDS: GABAPENTIN 300 MG CAPSULE. PO SCH ×2 (10:38→14:00)
[2019-06-15 10:39] VITALS: BP 131/64
[2019-06-15] MEDS: VERAPAMIL SR 120 MG TABLET.ER. PO SCH (10:39)
[2019-06-15] MEDS: NYSTATIN TOPICAL POWDER 15GM BOTTLE. TP SCH (10:40)
[2019-06-15] MEDS: INSULIN LISPRO 300 UNITS/3 ML VIAL. SQ SCH ×2 (15:21→15:23)
--- NOTE | 2019-06-15 15:26 | NUR ---
Pt discharged home for self care. Pt PICC discontinued with no complications, pressure dressing applied. Pt given verbal and written discharge, follow up and medication instructions. Pt left unit in stable condition via ambulation accompanied by this nurse.
== END 2019-06-15 15:00 | disposition home or self-care (01) | DRG 556 ==
LOC: LND 19:14
PROVIDERS: ADMIT Internal Medicine; ATTEND Internal Medicine
DX: M79.671 Pain in right foot (principal); E11.42 Type 2 diabetes mellitus with diabetic polyneuropathy; I10 Essential (primary) hypertension; M15.9 Polyosteoarthritis, unspecified; E78.5 Hyperlipidemia, unspecified; Z96.653 Presence of artificial knee joint, bilateral; Z90.711 Acquired absence of uterus with remaining cervical stump; Z88.0 Allergy status to penicillin; Z89.411 Acquired absence of right great toe
CPT/HCPCS: 36415; 80053; 82947; 85007; 85025; 85027; 85651; 86140; J0692; J1815; J2997; 97110; 97116; 97530; 97535